=== PATIENT | male | born 1965 | race Caucasian/White ===

== ENCOUNTER 2016-12-25 12:17 | Inpatient (IN) ==
[2016-12-25] MEDS ORDERED: NALOXONE 0.4 MG/ML VIAL IV PRN (13:49)
[2016-12-25] MEDS ORDERED: CYANOCOBALAMIN 1000 MCG/1 ML VIAL IM ONE (13:57)
[2016-12-25] MEDS: DEXT 5% NACL 0.45% KCL 20 MEQ 20 MEQ/1,000 ML BAG IV SCH (14:26)
[2016-12-25] MEDS: HYDROmorphone PCA 30 MG/30 ML SYRINGE IV PRN ×3 (14:26→23:15)
[2016-12-25] MEDS: FOLIC ACID 1 MG TABLET PO SCH (14:40)
[2016-12-25] MEDS ORDERED: oxyCODONE IR 5 MG TABLET PO PRN (16:47)
--- NOTE | 2016-12-25 16:54 | Oncology History&Physical ---
History of Present Illness Chief complaint: Severe intractable pain due to metastatic lung cancer History of present illness: Mr. 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 He has multiple areas of tumor involving his bones including the manubrium, the left supraclavicular area and the lower left posterior back of the thorax. In addition, I found new areas of tumor involving the periphery of the right lung and I did a chest x-ray today. He has previously been treated with 5 courses of Taxol and carboplatin and radiation therapy but he progressed. I treated him with Xgeva. I started him on Opdivo and he received 2 courses with the second course being given 1 week ago. He is clearly worsening now. He is on fentanyl 150 mcg by patch daily and he is on 30 mg of oxycodone about every 2 hours without pain relief. My primary goal at this time is to relieve his pain and I may consider a third line of chemotherapy using Keytruda 200 mg IV, Alimta 750 mg IV and carboplatin 120 mg IV on to be given on day 1 and repeated every 3 weeks. Lab work done today in my office included a white cell count of 24,860 with a hemoglobin of 9.9 and a platelet count of 193,000. His comprehensive metabolic profile today was normal except for an alkaline phosphatase of 238 with a low serum calcium of 7.8 and a low serum albumin of 2.3. His serum creatinine today was 0.6. Past medical history he is allergic to penicillin. Past medical history is positive for COPD, depression, anxiety, anemia and B12 deficiency. Family history: Positive for lung cancer in 2 brothers. Positive for diabetes mellitus in her brother, melanoma in his father, lung cancer in his mother and one sister. Social history: He is single. He smokes cigarettes heavily. He does not use alcohol. Review of systems: Constitutional: Positive for decreased activity, fatigue, lethargy, malaise and weight loss. ENT: Negative for cold sores, dysphagia, ear drainage, ear infections, epistaxis , excessive cerumen, nasal obstruction, lump in throat, mouth sores, otalgia, pharyngitis, rhinitis, rhinorrhea, snoring, sore tongue, tinnitus, tooth pain and vertigo. Eyes: Positive for decreased vision. Negative for burning eyes, diplopia, eye discharge, eye pain, eye redness, floaters, nystagmus, photophobia, scotomata and excessive tearing. Respiratory: Positive for accelerated respiration, cough, painful respiration and wheezing. Negative for cyanosis, dyspnea, hemoptysis, TB exposure, orthopnea, pleuritic pain, sputum production. GI: Positive for change in appetite, change in bowel habits, decreased appetite , diarrhea, heartburn, odynophagia and vomiting. Negative for abdominal mass, abdominal pain, bloating, blood in stool, hematemesis, melena or hematochezia, jaundice or constipation. : Positive for decreased stream and poor urgency. Negative for icteric urine , kidney stones, chronic or recurrent kidney infections or incontinence. Neuro: Positive for dizziness, headaches, lightheadedness and tremors. Negative for a aphasia, dysarthria, focal weakness, gait disturbance, incontinence, incoordination, loss of consciousness, seizures, convulsions or paralysis. Psychiatric: Positive for insomnia. Negative for difficulty concentrating, and appropriate interaction, or psychiatric illness. Skin: Negative for skin rash or skin ulcers. Musculoskeletal: Positive for back pain, bone and joint aches and pains, muscle weakness and neck stiffness. Negative for rheumatologic manifestations. Hematologic: Positive for cytopenias, at times severe. Negative for bleeding diathesis, easy bleeding, easy bruising, hypercoagulability, lymphadenopathy, petechiae or thromboembolic events. Physical examination: General: The patient is emaciated and cachectic and chronically ill-appearing. He appears to be in pain as well. Eyes: Normal lids and conjunctivae and normal pupils. ENT: Normal tongue and oral mucosa. Teeth are not in good repair. His hearing is normal. His pharynx is normal. Neck: There are no neck masses. The thyroid is normal. His trachea is midline. Nodes: I cannot palpate any definite submandibular adenopathy and no right cervical or supraclavicular adenopathy. The patient has a huge mass that extends throughout most of the supraclavicular fossa on the left and extends up into the cervical chain. Respiratory: The patient's chest wall demonstrates multiple masses including an ulcerated 1 over the manubrium as well as one in the supraclavicular fossa on the left and he also has a painful tender enlarging mass over the posterior thorax in the left lower part of his chest that is stony hard. Breath sounds are coarse throughout without rubs, rales or rhonchi. Cardiovascular: His heart rhythm is regular without murmur, gallop or rub. There is no jugular venous distention, clubbing, cyanosis or edema. Abdomen: I palpate no abdominal masses or organomegaly and no ascites or tenderness. Musculoskeletal: Gait and station are normal. He has generalized muscle wasting. There is no focal muscle atrophy or bone or joint deformity except for deformity of the left clavicle that is involved apparently with the large left supraclavicular mass. Neurologic: Cranial nerves II through XII are intact. There are no focal neurologic deficits. Skin: See chest examination. There is a large ulcerated mass in the manubrium as well as other masses involving the chest as described above. Blood work on the patient on the day of this admission included an elevated alkaline phosphatase of 238. The patient also had a hemoglobin of 9.9 with a normal platelet count of 193,000. In addition, his chest x-ray demonstrated significant increase in size of masses within the right peripheral lung field. These are not painful but there is substantial increase in the overall mass- effect as well as some increased the patient's right hilum where a mass-effect was suggested on a previous x-ray but is now significantly enlarged. Impression: Severe intractable pain secondary to metastatic lung cancer Stage IV widely metastatic squamous cell carcinoma of the lung with rapid progression of disease Emaciation and cachexia secondary to lung cancer COPD Anemia, multifactorial due to chronic disease primarily. Her diagnostic studies and treatment plan see my orders. Home Medications Medication Instructions Recorded Confirmed Type Oxycodone HCl 30 mg PO QID PRN 10/29/16 12/25/16 History fentaNYL 25 MCG/HR PATCH 50 patch TRANSDERM Q3DAY 10/29/16 12/25/16 History [Duragesic 25 Patch] Amitriptyline [Elavil] 25 mg PO BEDTIME 12/04/16 12/25/16 History Folic Acid Tab 1 mg PO DAILY 12/04/16 12/25/16 History Ondansetron Tab [Zofran Tab] 4 mg PO Q6H PRN 12/04/16 12/25/16 History fentaNYL [Fentanyl 50 mcg/hr Patch] 100 mcg TRANSDERM Q3DAY 12/04/16 12/25/16 History Furosemide Tab [Lasix Tab] 20 mg PO DAILY 12/25/16 12/25/16 History Indomethacin Cap [Indocin Cap] 25 mg PO TID 12/25/16 12/25/16 History tiZANidine [Zanaflex] 4 mg PO TID 12/25/16 12/25/16 History Allergies Allergy/AdvReac Type Severity Reaction Status Date / Time Penicillins Allergy Verified 12/04/16 09:25 Medical,Surgical,& Family Hx - Medical History Psychological: History of: Anxiety Disorders, Depression Respiratory: History of: COPD, Respiratory Problems (emphysema) Hematology: History of: Anemia Other: History of: Miscellaneous Medical Problems (b12 deficiency) - Family History Family History: Reports;: Family Cancer (father,mother,sister), Family Diabetes (brother, mother) - Social History Smoking Status: Smoker, status unknown Exam - Constitutional Vitals: Period Temp Pulse Resp BP Sys/Kwok Pulse Ox Last 24 Hr 97.9 F 81 18 80/48 98 Results - Labs CBC & BMP: 12/26/16 05:30 12/26/16 05:30
[2016-12-25] MEDS ORDERED: traMADol 50 MG TABLET PO PRN (17:09)
[2016-12-25] MEDS ORDERED: chlorproMAZINE 25 MG TABLET PO PRN (17:09)
[2016-12-25] MEDS ORDERED: PROMETHAZINE INJ 25 MG in SODIUM CHLORIDE 0.9% 50 ML IV PRN (17:09)
[2016-12-25] MEDS ORDERED: MYLANTA/LIDO VISC 2:1 300 ML BOTTLE SWISH/SWAL PRN (17:09)
[2016-12-25] MEDS ORDERED: chlorproMAZINE INJ 50 MG in SODIUM CHLORIDE 0.9% 100 ML IV PRN (17:09)
[2016-12-25] MEDS ORDERED: LOPERAMIDE 2 MG CAPSULE PO PRN ×2 (17:09)
[2016-12-25] MEDS ORDERED: chlorproMAZINE INJ 25 MG in SODIUM CHLORIDE 0.9% 100 ML IV PRN (17:09)
[2016-12-25] MEDS ORDERED: ALUMINUM/MAGNES/SIMETH MAX STR 30 ML UDCUP PO PRN (17:09)
[2016-12-25] MEDS ORDERED: guaiFENesin 200 MG/10 ML UDCUP PO PRN (17:09)
[2016-12-25] MEDS ORDERED: ACETAMINOPHEN 325 MG TABLET PO PRN (17:09)
[2016-12-25] MEDS ORDERED: diphenhydrAMINE CAP 25 MG CAPSULE PO PRN (17:09)
[2016-12-25] MEDS ORDERED: BENZTROPINE 2 MG/2 ML AMP IV PRN (17:09)
[2016-12-25] MEDS ORDERED: ALPRAZolam 0.25 MG TABLET PO PRN (17:09)
[2016-12-25] MEDS ORDERED: MYLANTA/LIDO VISC 2:1 300 ML BOTTLE SWISH/SPIT PRN (17:09)
[2016-12-25] MEDS ORDERED: TEMAZEPAM 7.5 MG CAPSULE PO PRN (17:09)
[2016-12-25] MEDS: INDOMETHACIN 25 MG CAPSULE PO SCH (21:33)
[2016-12-25] MEDS: tiZANidine 4 MG TABLET PO SCH (21:33)
[2016-12-25] MEDS: AMITRIPTYLINE 25 MG TABLET PO SCH (21:33)
[2016-12-26] MEDS: DEXT 5% NACL 0.45% KCL 20 MEQ 20 MEQ/1,000 ML BAG IV SCH ×4 (03:00→20:52)
[2016-12-26] MEDS: HYDROmorphone PCA 30 MG/30 ML SYRINGE IV PRN ×4 (05:43→21:41)
[2016-12-26 06:07] LABS: Basophils # 0.1 10*3/uL (0.0-0.2); Basophils % 0.3 % (0.0-0.8); Eosinophils # 1.2 10*3/uL (0.0-0.87); Hematocrit 27.6 VOL% (42.0-52.0); Hemoglobin 9.2 GM/DL (14.0-18.0); Immature Granulocytes % 1.1 %; Immature Granulocytes Absolute 0.21 #; Lymphocytes # 0.8 10*3/uL (1.4-4.0); Lymphocytes % 4.1 % (21.2-54.2); Mean Corpuscular HGB Conc 33.3 GM/DL (32-36); Mean Corpuscular Hemoglobin 31 PG (27-34); Mean Corpuscular Volume 91.4 FL (87-102); Mean Platelet Volume 11.2 FL (9.6-12.0); Monocytes # 1.8 10*3/uL (0.11-0.8); Monocytes % 9.4 % (1.7-12.7); Neutrophils # 15.3 10*3/uL (1.4-7.4); Neutrophils % 79.1 % (38.7-73.9); Platelet Count 137 T/CUMM (130-400); Red Blood Count 3.02 MC/CUMM (3.8-5.5); Red Cell Distribution Width 16.1 % (9.3-17.3); White Blood Count 19.4 T/CUMM (4-12)
[2016-12-26 06:29] LABS: Band Neutrophils 1 % (0-10); Eosinophils 5 % (0-10); Hypochromasia 1+; Lymphocytes 3 % (20-55); Microcytosis 1+; Ovalocytes Few; Segmented Neutrophils 88 % (50-85); Tear Drop Cells Slight; Total Cells Counted 100
[2016-12-26 06:30] LABS: Platelet Estimate Adequate
[2016-12-26 06:42] LABS: Albumin 1.5 G/DL (3.4-5.0); Bilirubin,Total 1.1 MG/DL (0.2-1.0); Calcium 7.1 MG/DL (8.5-10.1); Magnesium 2.2 MG/DL (1.8-2.4); Osmolality,Calculated 265.2 MOS/KG (273-304); Total Protein 5.1 G/DL (6.4-8.3); Uric Acid 1.8 MG/DL (3.5-7.2)
[2016-12-26 06:43] LABS: Apearance,Urine CLEAR (Clear); Bilirubin,Urine Negative (Negative); Blood, Urine Negative (Negative); Glucose,Urine (UA) Negative (Negative); Ketones,Urine Negative (Negative); Mucus,Urine Occasional /LPF (Occasional); Nitrite,Urine Negative (Negative); Protein,Urine Negative; RBC,Urine <1 /HPF (0-4); Squamous Epithelial Cell,Urine Occasional /HPF (0-10); Urine Color Yellow (Yellow); Urine Specific Gravity 1.011 (1.001-1.035); WBC,Urine 1 /HPF (0-6)
--- NOTE | 2016-12-26 08:15 | Oncology Progress Note ---
Oncology Subjective PN Interval history: Mr. Angulo was admitted with severe intractable pain and is now only downloaded FINISHER DENTURE with demand and continuous rates. He has stage IV disseminated squamous cell carcinoma of the lung. He has progressed on Taxol and carboplatin with radiation. He is also now progressed on Opdivo. I have given him B12 and folic acid in anticipation of considering Alimta, carboplatin and Keytruda. He is emaciated and cachectic and critically ill but his pain appears to be better controlled today on the Dilaudid FINISHER DENTURE. I am in the process of getting his pain stabilized and will be discussing chemotherapy with him. I discussed CODE STATUS with the patient today. He does not want to be intubated or placed on a ventilator. Exam - Constitutional Vitals: Period Temp Pulse Resp BP Sys/Kwok Pulse Ox Last 24 Hr 97.0 F-99.1 F 81-116 16-20 80-116/48-61 89-98 Results - Labs CBC & BMP: 12/26/16 05:30 12/26/16 05:30
[2016-12-26] MEDS ORDERED: FOLIC ACID 1 MG TABLET PO SCH (09:00)
[2016-12-26] MEDS ORDERED: fentaNYL 50 MCG/HR PATCH TRANSDERM SCH (09:00)
--- NOTE | 2016-12-26 09:27 | XRay Report ---
Chest, 2 views History is metastatic squamous cell of the long The heart is normal in size. The there is a mild superior mediastinal widening and peritracheal soft tissue fullness. There is a 5 cm fullness in the right hilum There are numerous right lung nodules measuring up to 6 cm. Several up to 1.5 cm nodules in left lung base present. Small right pleural effusion present. Underlying infiltrates could easily be present as well in the right lung base. Relative lucency overlying the nodule in the right upper chest most likely overlying shadows however a small cavity cannot be excluded. Likely chronic right rib fracture noted. L1 the sclerosis versus uteroplasty present Impression: Multiple right greater than left lung nodules likely neoplastic with right hilar mass or adenopathy and suspected mediastinal adenopathy. PROCEDURE INTERPRETED AT [facility] DEPARTMENT OF RADIOLOGY Final Report Signed by: Dr. Ericka Santana
[2016-12-26] MEDS: INDOMETHACIN 25 MG CAPSULE PO SCH ×3 (09:47→20:51)
[2016-12-26] MEDS: FUROSEMIDE 20 MG TABLET PO SCH (09:47)
[2016-12-26] MEDS: tiZANidine 4 MG TABLET PO SCH ×3 (09:47→20:51)
[2016-12-26] MEDS: FOLIC ACID 1 MG TABLET PO SCH (09:47)
[2016-12-26] MEDS: AMITRIPTYLINE 25 MG TABLET PO SCH (20:51)
[2016-12-27] MEDS: HYDROmorphone PCA 30 MG/30 ML SYRINGE IV PRN ×5 (02:37→22:07)
[2016-12-27] MEDS: DEXT 5% NACL 0.45% KCL 20 MEQ 20 MEQ/1,000 ML BAG IV SCH ×2 (06:54→17:02)
[2016-12-27] MEDS: INDOMETHACIN 25 MG CAPSULE PO SCH ×3 (08:39→20:24)
[2016-12-27] MEDS: tiZANidine 4 MG TABLET PO SCH ×3 (08:39→20:24)
[2016-12-27] MEDS: FOLIC ACID 1 MG TABLET PO SCH (08:39)
[2016-12-27] MEDS: FUROSEMIDE 20 MG TABLET PO SCH (08:39)
--- NOTE | 2016-12-27 08:56 | Oncology Progress Note ---
Oncology Subjective PN Interval history: was admitted with severe intractable pain due to advanced, progressive squamous cell carcinoma of the lung that has now progressed on Taxol , carboplatin and radiation and also has progressed on Opdivo. He is having terrible pain presently. He has a large mass in the left supraclavicular area as well as a large ulcerating mass over the manubrium and another painful mass in the left lower posterior thoracic subcutaneous tissue. In addition, he has rapidly progressing cancer in his right lung that was not clearly visible just a couple of months ago and is now easily visible on chest x -ray. 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 I have started him on B12 and folic acid in anticipation of attempting to treat him with Alimta, carboplatin and Keytruda but that would be third line treatment and I am not optimistic of it being very effective. He had been on fentanyl 150 mg patches every 72 hours along with oxycodone 30 mg every 2 hours as needed for pain. I am discontinuing the oxycodone. We are going to discontinue his demand dose of Dilaudid on his PRINCIPAL NETWORK ENGINEER. We will continue the Dilaudid PRINCIPAL NETWORK ENGINEER with continuous right infusion of Dilaudid. I am switching him to Dilaudid by mouth initially at a dose of 4 mg every 2 hours with orders to increase the demand dose, which is to be given by mouth, 8 mg p.o. every 2 hours if necessary. I anticipate discharge next week, hopefully on Friday we can get his pain under control. Exam - Constitutional Vitals: Period Temp Pulse Resp BP Sys/Kwok Pulse Ox Last 24 Hr 97.1 F-99.1 F 81-106 16-20 73-96/43-56 20-95 Results - Labs CBC & BMP: 12/26/16 05:30 12/26/16 05:30
[2016-12-27] MEDS: HYDROmorphone 2 MG TABLET PO PRN ×4 (11:44→22:03)
[2016-12-27] MEDS: AMITRIPTYLINE 25 MG TABLET PO SCH (20:25)
[2016-12-28] MEDS: HYDROmorphone 2 MG TABLET PO PRN ×6 (00:03→20:31)
[2016-12-28] MEDS: DEXT 5% NACL 0.45% KCL 20 MEQ 20 MEQ/1,000 ML BAG IV SCH ×3 (02:57→22:50)
[2016-12-28] MEDS: HYDROmorphone PCA 30 MG/30 ML SYRINGE IV PRN ×3 (05:56→16:35)
[2016-12-28] MEDS ORDERED: fentaNYL 25 MCG/HR PATCH TRANSDERM SCH (09:00)
[2016-12-28] MEDS ORDERED: fentaNYL 50 MCG/HR PATCH TRANSDERM SCH (09:00)
[2016-12-28] MEDS ORDERED: LACTULOSE 20 GM/30 ML UDCUP PO SCH (09:30)
--- NOTE | 2016-12-28 09:30 | Oncology Progress Note ---
Assessment and Plan (1) Lung cancer Status: Acute Current Visit: Yes (2) Intractable pain Status: Acute Current Visit: Yes (3) Constipation Status: Acute Current Visit: Yes (4) Constipation due to opioid therapy Status: Acute Current Visit: Yes Oncology Subjective PN Interval history: Mr. Angulo seems to be doing well today. We will increase his fentanyl dosing to 200 mcg daily and decrease his continuous Dilaudid to 2 mg/h down from 4 mg/ h. He complains of constipation so we will place him on daily MiraLAX. I will give him 2 doses of lactulose today. I encouraged him to sit on the edge of the bed or sit in a chair for the majority of the day. 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 Exam - Constitutional Vitals: Period Temp Pulse Resp BP Sys/Kwok Pulse Ox Last 24 Hr 97.6 F-99.3 F 95-126 16-20 85-97/52-54 89-95 General appearance: normal weight, no acute distress - Head Head Exam: Present: normocephalic, atraumatic - Eye Eye Exam: Present: EOMI Pupils: Present: PERRL - ENT ENT exam: Present: normal exam, normal oropharynx - Neck Neck exam: Absent: normal inspection, lymphadenopathy - Respiratory Respiratory exam: Present: CTAB. Absent: wheezes - Cardiovascular Cardiovascular exam: Present: RRR. Absent: JVD - GI/Abdominal GI/Abdominal exam: Present: soft. Absent: ascites, distended, mass - Neurological Exam Neurological exam: Present: alert, oriented X3 - Psychiatric Psychiatric exam: Present: normal affect, normal mood - Skin Skin exam: Present: warm, dry Results - Labs CBC & BMP: 12/26/16 05:30 12/26/16 05:30 Lab Results: I have reviewed the past 24 hour labs
[2016-12-28] MEDS: FUROSEMIDE 20 MG TABLET PO SCH (09:40)
[2016-12-28] MEDS: FOLIC ACID 1 MG TABLET PO SCH (09:40)
[2016-12-28] MEDS: tiZANidine 4 MG TABLET PO SCH ×3 (09:40→20:31)
[2016-12-28] MEDS: fentaNYL 100 MCG/HR PATCH TRANSDERM SCH ×2 (09:41)
[2016-12-28] MEDS: INDOMETHACIN 25 MG CAPSULE PO SCH ×3 (09:41→20:31)
[2016-12-28] MEDS: POLYETHYLENE GLYCOL POWDER 17 GM PACK PO SCH (09:46)
[2016-12-28] MEDS: ONDANSETRON 4 MG/2 ML VIAL IV PRN (12:36)
[2016-12-28] MEDS: ALBUTEROL/IPRATROPIUM 3 ML NEB RESP TX SCH ×2 (13:40→19:51)
[2016-12-28] MEDS: AMITRIPTYLINE 25 MG TABLET PO SCH (20:31)
[2016-12-29] MEDS: ALBUTEROL/IPRATROPIUM 3 ML NEB RESP TX SCH ×4 (01:06→19:48)
[2016-12-29] MEDS: HYDROmorphone 2 MG TABLET PO PRN ×4 (02:31→20:56)
[2016-12-29] MEDS: HYDROmorphone PCA 30 MG/30 ML SYRINGE IV PRN (07:30)
--- NOTE | 2016-12-29 09:33 | Oncology Progress Note ---
Assessment and Plan (1) Lung cancer Status: Acute Current Visit: Yes (2) Intractable pain Status: Acute Current Visit: Yes (3) Constipation Status: Acute Current Visit: Yes (4) Constipation due to opioid therapy Status: Acute Current Visit: Yes Oncology Subjective PN Interval history: Mr. Angulo is requiring more oxygen today. We again had a lengthy discussion about end-of-life care and he still is adamant that he does not want be placed on the mechanical ventilator if it comes to that. His chart was already labeled DNR. We will be certain to keep him comfortable if he declines further. He seems to be doing well with increased dose of fentanyl. His overall prognosis is very poor and he seems to be at a place where we could start considering hospice level care. Exam - Constitutional Vitals: Period Temp Pulse Resp BP Sys/Kwok Pulse Ox Last 24 Hr 96.9 F-98.1 F 91-118 16-21 89-132/46-59 82-98 General appearance: normal weight, no acute distress - Head Head Exam: Present: normocephalic, atraumatic - Eye Eye Exam: Present: EOMI Pupils: Present: PERRL - ENT ENT exam: Present: normal exam, normal oropharynx - Neck Neck exam: Absent: lymphadenopathy, thyromegaly - Respiratory Respiratory exam: Absent: CTAB - Cardiovascular Cardiovascular exam: Present: RRR. Absent: JVD - GI/Abdominal GI/Abdominal exam: Present: soft. Absent: ascites, distended, mass - Neurological Exam Neurological exam: Present: alert, oriented X3 - Skin Skin exam: Present: warm, dry Results - Labs CBC & BMP: 12/26/16 05:30 12/26/16 05:30
[2016-12-29] MEDS: FUROSEMIDE 20 MG TABLET PO SCH (10:14)
[2016-12-29] MEDS: tiZANidine 4 MG TABLET PO SCH ×3 (10:15→20:55)
[2016-12-29] MEDS: INDOMETHACIN 25 MG CAPSULE PO SCH ×3 (10:15→20:56)
[2016-12-29] MEDS: FOLIC ACID 1 MG TABLET PO SCH (10:15)
[2016-12-29] MEDS: LACTULOSE 20 GM/30 ML UDCUP PO PRN (10:16)
[2016-12-29] MEDS: POLYETHYLENE GLYCOL POWDER 17 GM PACK PO SCH (10:19)
[2016-12-29] MEDS: DEXT 5% NACL 0.45% KCL 20 MEQ 20 MEQ/1,000 ML BAG IV SCH ×2 (13:49→20:54)
[2016-12-29] MEDS: AMITRIPTYLINE 25 MG TABLET PO SCH (20:56)
[2016-12-30] MEDS: ALBUTEROL/IPRATROPIUM 3 ML NEB RESP TX SCH ×4 (01:00→18:59)
[2016-12-30] MEDS: DEXT 5% NACL 0.45% KCL 20 MEQ 20 MEQ/1,000 ML BAG IV SCH ×4 (05:30→20:32)
--- NOTE | 2016-12-30 07:41 | Oncology Progress Note ---
Oncology Subjective PN Interval history: Severe intractable pain secondary to metastatic stage IV squamous cell lung carcinoma He is still on parenteral narcotics for pain and I do not think I will ever get off them. 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 Angulo now has significant edema of the left arm, probably from the large amount of tumor located overlying the left clavicle. I am proceeding with chemotherapy today but the hospital will not supply Keytruda inpatient because of the expense. Will use Alimta and carboplatin. This is third line chemotherapy and I am not optimistic about the effectiveness of it but am hoping that it will improve enough that I can send him home and return him for Keytruda a few days. Emaciation and cachexia COPD In addition, he is becoming hypoxic and he is on a 100% oxygen rebreather. Anemia, multifactorial including chronic disease mainly and partly due to chemotherapy and radiation We will recheck lab work today. Exam - Constitutional Vitals: Period Temp Pulse Resp BP Sys/Kwok Pulse Ox Last 24 Hr 97.0 F-98.9 F 86-135 16-32 90-121/47-64 73-88 Results - Labs CBC & BMP: 12/26/16 05:30 12/26/16 05:30
[2016-12-30] MEDS ORDERED: PEMETREXED IV ONE (08:30)
[2016-12-30] MEDS ORDERED: CARBOPLATIN IV ONE (08:30)
[2016-12-30] MEDS ORDERED: SODIUM CHLORIDE 0.9% IV ONE ×2 (08:30)
[2016-12-30] MEDS ORDERED: CYANOCOBALAMIN 1000 MCG/1 ML VIAL IM ONE (08:30)
[2016-12-30 08:32] LABS: Basophils # 0.1 10*3/uL (0.0-0.2); Basophils % 0.4 % (0.0-0.8); Eosinophils # 1.5 10*3/uL (0.0-0.87); Eosinophils % 8.2 % (0.00-10.9); Hemoglobin 8.9 GM/DL (14.0-18.0); Immature Granulocytes % 1.1 %; Lymphocytes # 0.8 10*3/uL (1.4-4.0); Lymphocytes % 4.6 % (21.2-54.2); Mean Corpuscular Hemoglobin 31 PG (27-34); Mean Corpuscular Volume 92.5 FL (87-102); Mean Platelet Volume 11.6 FL (9.6-12.0); Monocytes % 5.7 % (1.7-12.7); Neutrophils # 14.5 10*3/uL (1.4-7.4); Red Blood Count 2.92 MC/CUMM (3.8-5.5); Red Cell Distribution Width 16.3 % (9.3-17.3); White Blood Count 18.1 T/CUMM (4-12)
[2016-12-30 08:36] LABS: Platelet Count 78 T/CUMM (130-400)
[2016-12-30] MEDS: INDOMETHACIN 25 MG CAPSULE PO SCH ×3 (08:47→21:13)
[2016-12-30] MEDS: FOLIC ACID 1 MG TABLET PO SCH (08:47)
[2016-12-30] MEDS: FUROSEMIDE 20 MG TABLET PO SCH (08:47)
[2016-12-30] MEDS: tiZANidine 4 MG TABLET PO SCH ×3 (08:47→21:13)
[2016-12-30] MEDS: POLYETHYLENE GLYCOL POWDER 17 GM PACK PO SCH (08:48)
[2016-12-30 08:59] LABS: Band Neutrophils 1 % (0-10); Eosinophils 6 % (0-10); Hypochromasia 1+; Lymphocytes 5 % (20-55); Segmented Neutrophils 83 % (50-85); Total Cells Counted 100
[2016-12-30 09:00] LABS: Elliptocytes Few; Microcytosis 1+; Tear Drop Cells Slight
[2016-12-30 09:01] LABS: Platelet Estimate Decreased
[2016-12-30 09:12] LABS: Albumin 1.5 G/DL (3.4-5.0); Bilirubin,Total 1.6 MG/DL (0.2-1.0); Calcium 7.6 MG/DL (8.5-10.1); Osmolality,Calculated 274.8 MOS/KG (273-304); Potassium 4.4 MMOL/L (3.5-5.1); Total Protein 5.1 G/DL (6.4-8.3)
[2016-12-30] MEDS: DEXAMETHASONE 4 MG/1 ML VIAL IV SCH (10:13)
[2016-12-30] MEDS: GRANISETRON 1 MG/1 ML VIAL IV SCH (10:14)
[2016-12-30] MEDS: HYDROmorphone PCA 30 MG/30 ML SYRINGE IV PRN (10:18)
[2016-12-30] MEDS: AMITRIPTYLINE 25 MG TABLET PO SCH (21:13)
[2016-12-31] MEDS: ALBUTEROL/IPRATROPIUM 3 ML NEB RESP TX SCH ×4 (01:00→19:10)
[2016-12-31] MEDS: DEXT 5% NACL 0.45% KCL 20 MEQ 20 MEQ/1,000 ML BAG IV SCH ×3 (06:19→16:35)
--- NOTE | 2016-12-31 08:14 | Oncology Progress Note ---
Oncology Subjective PN Interval history: Mr. Angluo received Alimta and carboplatin yesterday. This was the third line chemotherapy. He has disseminated squamous cell carcinoma of the lung and he has developed hypoxia requiring 100% oxygen by rebreather. He is tachypnea. He has swelling of his left arm. However, it has gone down slightly since yesterday. I am hoping this is a response to chemotherapy. He is emaciated and cachectic. He is also having a lot of pain and he is on parenteral narcotics for pain relief. We will continue to monitor him for side effects from the chemotherapy. I am consulting pulmonary to evaluate patient with me. His oxygen line is too short. He cannot reach his bathroom without taking his 100% oxygen often this is exceedingly dangerous. I have requested that it be replaced. This is third line chemotherapy and I had planned to use Keytruda outpatient but the patient cannot be discharged yet. He cannot receive contrary to inpatient. The pharmacy cannot absorb the cost inpatient. Exam - Constitutional Vitals: Period Temp Pulse Resp BP Sys/Kwok Pulse Ox Last 24 Hr 96.4 F-97.4 F 66-116 16- 78-111/46-63 72-97 Results - Labs CBC & BMP: 12/30/16 08:24 12/30/16 08:24
[2016-12-31] MEDS: GRANISETRON 1 MG/1 ML VIAL IV SCH (08:42)
[2016-12-31] MEDS: DEXAMETHASONE 4 MG/1 ML VIAL IV SCH (08:42)
[2016-12-31] MEDS: FOLIC ACID 1 MG TABLET PO SCH (08:43)
[2016-12-31] MEDS: fentaNYL 100 MCG/HR PATCH TRANSDERM SCH ×2 (08:43→08:44)
[2016-12-31] MEDS: INDOMETHACIN 25 MG CAPSULE PO SCH (08:43)
[2016-12-31] MEDS: FUROSEMIDE 20 MG TABLET PO SCH (08:43)
[2016-12-31] MEDS: tiZANidine 4 MG TABLET PO SCH ×3 (08:43→20:12)
[2016-12-31] MEDS: POLYETHYLENE GLYCOL POWDER 17 GM PACK PO SCH (08:44)
--- NOTE | 2016-12-31 09:35 | XRay Report ---
XR chest 2V Indication: Follow-up lung cancer, chest mass Comparison: Chest x-ray dated December 26, 2016 Technique: Frontal and lateral views of the chest. Findings: Borderline heart size. Interval development of bilateral interstitial prominence suspicious for interstitial pulmonary edema, pneumonitis, or interstitial pneumonia. Previously described predominantly right-sided lung masses appear mildly decreased in size from prior examination. The largest is located within the lateral mid right lung and measures up to 4.6 cm compared to 5.1 cm on prior examination. Atelectasis of the right middle lobe noted. Visualized osseous and surrounding soft tissue structures appear grossly unchanged. L1 sclerosis versus vertebroplasty change. IMPRESSION: As above. PROCEDURE INTERPRETED AT [facility] DEPARTMENT OF RADIOLOGY Final Report Signed by: Dr Amandeep Anglin
[2016-12-31] MEDS ORDERED: FUROSEMIDE 40 MG/4 ML VIAL IV ONE (10:15)
--- NOTE | 2016-12-31 11:18 | Pulmonology Consult Note ---
Assessment and Plan (1) Pulmonary edema Status: Acute Assessment and plan: May be ahead on fluids. He has been getting hydration and his renal function is normal. Will check BNP and get echocardiogram. Diuresed vigorously. Serum proteins are low which may aggravate this. Other less likely cause may be related to chemotherapy. This does not look like pneumonia. Current Visit: Yes (2) Debility Status: Acute Assessment and plan: Due to widespread metastatic disease and inactivity Current Visit: Yes (3) Severe protein-calorie malnutrition Status: Acute Assessment and plan: Low serum albumin. This aggravates pulmonary edema. Current Visit: Yes (4) Intractable pain Status: Acute Assessment and plan: Managed by Dr. Silva. Due to multiple bony metastasis Current Visit: Yes (5) Lung cancer Status: Acute Assessment and plan: Stage IV squamous cell lung cancer. I do note the patient is a DO NOT RESUSCITATE. Current Visit: Yes History of Present Illness Chief complaint: Shortness of breath History of present illness: Mr. Angulo is a 51 year old male who has stage IV squamous cell lung cancer with metastasis to multiple bony sites and severe pain. He came in and was given Alimta and carboplatin. He has had radiation therapy Taxol and carboplatin as an outpatient. He has been short of breath since June but basically more short of breath the last 2 or 3 days. He is a continuous smoker. He has a history of incarceration. He was treated initially at [facility] in [place] but is transferred treatment over here. His renal function has been normal. He had a low serum albumin. He has been on IV fluids since admission. There have not been any whites none but he has developed edema. His chest x-ray today shows pulmonary edema. He has not had any fever or purulent sputum. Home Medications Medication Instructions Recorded Confirmed Type Oxycodone HCl 30 mg PO QID PRN 10/29/16 12/25/16 History fentaNYL 25 MCG/HR PATCH 50 patch TRANSDERM Q3DAY 10/29/16 12/25/16 History [Duragesic 25 Patch] Amitriptyline [Elavil] 25 mg PO BEDTIME 12/04/16 12/25/16 History Folic Acid Tab 1 mg PO DAILY 12/04/16 12/25/16 History Ondansetron Tab [Zofran Tab] 4 mg PO Q6H PRN 12/04/16 12/25/16 History fentaNYL [Fentanyl 50 mcg/hr Patch] 100 mcg TRANSDERM Q3DAY 12/04/16 12/25/16 History Furosemide Tab [Lasix Tab] 20 mg PO DAILY 12/25/16 12/25/16 History Indomethacin Cap [Indocin Cap] 25 mg PO TID 12/25/16 12/25/16 History tiZANidine [Zanaflex] 4 mg PO TID 12/25/16 12/25/16 History Allergies Allergy/AdvReac Type Severity Reaction Status Date / Time Penicillins Allergy Verified 12/04/16 09:25 12 point system: reviewed and no additional remarkable complaints except as stated - Constitutional Constitutional: Present: fatigue, malaise, weight loss - Cardiovascular Cardiovascular: Present: dyspnea, dyspnea on exertion, edema, orthopnea - Respiratory Respiratory: Present: cough, dyspnea, dyspnea on exertion - Gastrointestinal Gastrointestinal: Present: change in bowel habits, nausea, vomiting - Genitourinary Genitourinary: Present: difficulty urinating - Musculoskeletal Musculoskeletal: Present: arthralgias, back pain, joint swelling, myalgias - Neurological Neurological: Present: dizziness, headache(s) - Psychiatric Psychiatric: Present: other (Insomnia) - Hematologic/Lymphatic Hematologic/Lymphatic: Present: other (Low blood count) Exam (Pulmonay) H&P - Constitutional Vitals: Period Temp Pulse Resp BP Sys/Kwok Pulse Ox Last 24 Hr 96.4 F-97.3 F 66-103 16-26 78-111/46-63 72-96 Exam: Patient is alert. Vital signs normal except O2 sat 95% on nonrebreathing mask. Pupils react to light. Throat is clear. Neck supple no bruits. Chest reveals rales bilaterally. Heart normal rate and rhythm I do not hear any murmurs. Abdomen is soft liver edge is palpable. Should mention that he has a growth coming out of the right side of his chest which appears to be metastatic cancer. Extremities he has 2-3+ peripheral edema which is pitting. Medical,Surgical,& Family Hx - Medical History Psychological: History of: Anxiety Disorders, Depression Respiratory: History of: COPD, Respiratory Problems (emphysema) Hematology: History of: Anemia Other: History of: Miscellaneous Medical Problems (b12 deficiency) - Family History Family History: Reports;: Family Cancer (father,mother,sister), Family Diabetes (brother, mother) - Social History Smoking Status: Heavy tobacco smoker Results - Labs CBC & BMP: 12/30/16 08:24 12/30/16 08:24 Lab Results: I have reviewed the past 24 hour labs - Diagnostic Findings Procedure: Chest x-ray: image reviewed by me (Pulmonary nodules peripherally in the right lung. Interstitial edema bilaterally. No pleural effusions)
[2016-12-31] MEDS: FUROSEMIDE 40 MG/4 ML VIAL IV SCH (16:31)
--- NOTE | 2016-12-31 18:16 | ECHO Report ---
Jean Paul Angulo Exam Date: 12/31/2016 12:12 Referring Physician: Technologist: chastity Wick, RVT Age: 51 Ht (in): 65 Wt (lb): 112 Gender: M Exam Location: [facility] Echo Indications: Shortness of breath, Lung cancerW/ metastatic disease, Debility, Pulmonary edema, Severe protein and calorie malnutririon BP: 88 / 50 HR: 92 Rhythm: Sinus Technical Quality: Technically difficult study IMPRESSIONS Technically difficult study Left ventricular ejection fraction is estimated at 55-60%. Mild diastolic dysfunction. Trace mitral valve regurgitation. Mild tricuspid valve regurgitation. Trace pulmonary valve regurgitation. MEASUREMENTS (Male / Female) Normal Values 2D ECHO LV Diastolic Diameter PLAX 4.7 cm 4.2 - 5.9 / 3.9 - 5.3 cm LV Systolic Diameter PLAX 3.0 cm LV Fractional Shortening PLAX 36.4 % IVS Diastolic Thickness 0.6 cm 0.6 - 1.0 / 0.6 - 0.9 cm LVPW Diastolic Thickness 0.8 cm 0.6 - 1.0 / 0.6 - 0.9 cm RV Internal Dim ED PLAX 2.5 cm Aortic Root Diameter 3.0 cm LA Systolic Diameter LX 2.9 cm 3.0 - 4.0 / 2.7 - 3.8 cm DOPPLER TR Peak Velocity 274.0 cm/s TR Peak Gradient 30.0 mmHg FINDINGS Left Ventricle Normal left ventricular cavity size. Normal left ventricular wall thickness. Left ventricular ejection fraction is estimated at 55-60%. Mild diastolic dysfunction Right Ventricle The right ventricle is normal in size and function. Right Atrium The right atrium is normal in size. Left Atrium The left atrium is normal in size. Mitral Valve Mildly thickened mitral valve. Trace mitral valve regurgitation. Aortic Valve Morphologically normal aortic valve without significant sclerosis or stenosis. There is no aortic regurgitation. Tricuspid Valve Morphologically normal tricuspid valve. Mild tricuspid valve regurgitation. Tricuspid regurgitation velocities suggest a PAP of 40 mmHg. Pulmonic Valve Morphologically normal pulmonic valve. Trace pulmonary valve regurgitation. Pericardium Normal pericardium without effusion. Aorta Normal ascending aorta dimension. Edward Solis (Electronically Signed) Final Date: 31 December 2016 18:15
[2016-12-31] MEDS: AMITRIPTYLINE 25 MG TABLET PO SCH (20:12)
[2017-01-01] MEDS: ALBUTEROL/IPRATROPIUM 3 ML NEB RESP TX SCH ×4 (00:44→19:25)
[2017-01-01] MEDS: HYDROmorphone 2 MG TABLET PO PRN ×6 (05:03→19:33)
[2017-01-01 06:35] LABS: Basophils % 0.1 % (0.0-0.8); Eosinophils % 0.1 % (0.00-10.9); Hematocrit 28.9 VOL% (42.0-52.0); Hemoglobin 9.3 GM/DL (14.0-18.0); Immature Granulocytes % 0.9 %; Immature Granulocytes Absolute 0.21 #; Lymphocytes # 0.9 10*3/uL (1.4-4.0); Lymphocytes % 4.2 % (21.2-54.2); Mean Corpuscular HGB Conc 32.2 GM/DL (32-36); Mean Corpuscular Hemoglobin 29 PG (27-34); Mean Corpuscular Volume 91.5 FL (87-102); Monocytes # 0.1 10*3/uL (0.11-0.8); Monocytes % 0.5 % (1.7-12.7); Neutrophils # 20.9 10*3/uL (1.4-7.4); Neutrophils % 94.2 % (38.7-73.9); Platelet Count 104 T/CUMM (130-400); Red Blood Count 3.16 MC/CUMM (3.8-5.5); White Blood Count 22.2 T/CUMM (4-12)
[2017-01-01 07:02] LABS: Albumin 1.7 G/DL (3.4-5.0); Calcium 7.4 MG/DL (8.5-10.1); Potassium 4.7 MMOL/L (3.5-5.1); Total Protein 5.6 G/DL (6.4-8.3)
[2017-01-01 07:12] LABS: Band Neutrophils 2 % (0-10); Lymphocytes 3 % (20-55); Segmented Neutrophils 95 % (50-85); Total Cells Counted 100
[2017-01-01 07:13] LABS: Giant Platelets Few; Hypochromasia 1+; Microcytosis 1+; Ovalocytes Slight; Platelet Estimate Decreased
[2017-01-01] MEDS: FUROSEMIDE 20 MG TABLET PO SCH ×2 (07:52→13:34)
[2017-01-01] MEDS: tiZANidine 4 MG TABLET PO SCH ×4 (07:53→20:28)
[2017-01-01] MEDS: methylPREDNISolone SOD SUC 40 MG/1 ML VIAL IV SCH ×3 (07:53→23:13)
[2017-01-01] MEDS: FOLIC ACID 1 MG TABLET PO SCH ×2 (07:53→11:33)
[2017-01-01] MEDS: FUROSEMIDE 40 MG/4 ML VIAL IV SCH ×2 (07:54→13:33)
[2017-01-01] MEDS: LEVOFLOXACIN INJ 500 MG in PREMIX 1 EACH IV SCH (07:55)
--- NOTE | 2017-01-01 07:55 | Oncology Progress Note ---
Oncology Subjective PN Interval history: remains critically ill with severe COPD as well as stage IV squamous cell carcinoma lung. He has just received chemotherapy using Alimta and carboplatin. He has left arm edema. His chest x-ray suggests fluid overload or possibly lymphangitic spread of tumor. I have consulted Dr. John on his case and appreciate his assistance. Mr. tinoco has life-threatening lung cancer with emaciation, cachexia and severe COPD. We are going to keep him as comfortable as possible. He is on oral and parenteral narcotics for pain. On physical examination he is oriented 3 and alert. Cranial nerves II through XII are intact and he has no focal neurologic deficits. He has extensive tumor involvement of the left supraclavicular area, manubrium of the sternum and left lower posterior thorax. He is critically ill. Lab work today includes a white cell count of 22,200 with a hemoglobin of 9.3 and a platelet count of 104,000. I do not think is minor thrombocytopenia is of any significance. His serum creatinine is normal at 0.4 and his calcium is 7.4. He has a low albumin of 1.7 due to emaciation and cachexia and malnutrition. Exam - Constitutional Vitals: Period Temp Pulse Resp BP Sys/Kwok Pulse Ox Last 24 Hr 96.8 F-97.6 F 86-114 18-24 86-95/50-61 88-96 Results - Labs CBC & BMP: 01/01/17 05:48 01/01/17 05:48
--- NOTE | 2017-01-01 08:44 | Pulmonology Progress Note ---
Pulmonary - PN: Subj Interval history: This 51-year-old man has widespread metastatic squamous cell cancer including chest wall involvement left shoulder involvement rib cage involvement. He has had radiation to his chest and left shoulder which was completed about 2 months ago. He now has diffuse infiltrates which have come up rather quickly. I reviewed his medications and neither the Alimta nor the carboplatin have any significant pulmonary toxicity or cardiac toxicity. We may be seeing some radiation pneumonitis. Superimposed pneumonia is a possibility. Noncardiac pulmonary edema also a possibility. Will treat with steroids and empiric antibiotics. Try to reduce oxygen as high oxygen levels can make radiation pneumonitis worse Exam (Progress Note) - Constitutional Vitals: Period Temp Pulse Resp BP Sys/Kwok Pulse Ox Last 24 Hr 96.8 F-97.6 F 86-114 18-24 86-95/50-61 88-96 Exam: Patient's alert responsive sitting on the side of the bed wearing his nonrebreathing mask. Pupils are reactive. Neck is supple. Chest reveals some rales bilaterally. A few musical rhonchi. Heart normal rate and rhythm no murmurs. Bandage over his sternum. Abdomen soft nontender no masses. Extremities no clubbing or cyanosis she does have a trace to 1+ edema. Results - Labs CBC & BMP: 01/01/17 05:48 01/01/17 05:48 Lab Results: I have reviewed the past 24 hour labs - Diagnostic Findings Procedure: Chest x-ray: image reviewed by me (Right subpleural masses. Diffuse bilateral interstitial infiltrates unchanged from previous.) Assessment and Plan (1) Pulmonary edema Status: Acute Assessment and plan: May be ahead on fluids. He has been getting hydration and his renal function is normal. Will check BNP and get echocardiogram. Diuresed vigorously. Serum proteins are low which may aggravate this. Other less likely cause may be related to chemotherapy. This does not look like pneumonia. 01/01/2017 this appears to be noncardiac pulmonary edema. His BNP and echocardiogram were normal. This could be simply fluid overload but I think that is unlikely. Medications that he has had do not frequently calls 9 cardiac pulmonary edema. Radiation pneumonitis may be a factor although the infiltrates do not take on any kind of a square appearance. We will treat him for all of these including possible infection. Prognosis is poor. Current Visit: Yes (2) Debility Status: Acute Assessment and plan: Due to widespread metastatic disease and inactivity Current Visit: Yes (3) Severe protein-calorie malnutrition Status: Acute Assessment and plan: Low serum albumin. This aggravates pulmonary edema. Current Visit: Yes (4) Intractable pain Status: Acute Assessment and plan: Managed by Dr. Silva. Due to multiple bony metastasis Current Visit: Yes (5) Lung cancer Status: Acute Assessment and plan: Stage IV squamous cell lung cancer. I do note the patient is a DO NOT RESUSCITATE. 01/01/2017 rapid progression of lymphangitic spread is a possibility as well although it seems to be too rapid and involving most of both lungs which would be unusual. Current Visit: Yes
--- NOTE | 2017-01-01 09:32 | XRay Report ---
History: Congestive heart failure Date: 01/01/2017 Study: Chest x-ray single view portable Comparison exam: December 31, 2016 The cardiac silhouette is not enlarged. The mediastinal contours are stable. There is continued groundglass infiltrate/edema bilaterally which is grossly similar. Numerous noncalcified pleural-based masses in the mid to lower right hemithorax are present as before in this patient with a history of lung cancer. There is no pleural effusion. Osseous structures are unchanged. Impression: Continued bilateral infiltrate/edema without gross change. Multiple lung masses on the right as before PROCEDURE INTERPRETED AT [facility] DEPARTMENT OF RADIOLOGY Final Report Signed by: Dr. Ursula Azar
[2017-01-01] MEDS: LACTULOSE 20 GM/30 ML UDCUP PO PRN (11:30)
[2017-01-01] MEDS: POLYETHYLENE GLYCOL POWDER 17 GM PACK PO SCH (11:30)
[2017-01-01] MEDS: AMITRIPTYLINE 25 MG TABLET PO SCH (20:28)
[2017-01-02] MEDS: ALBUTEROL/IPRATROPIUM 3 ML NEB RESP TX SCH ×4 (01:58→19:17)
[2017-01-02] MEDS: HYDROmorphone 2 MG TABLET PO PRN ×4 (03:33→20:37)
[2017-01-02 06:40] LABS: Albumin 1.8 G/DL (3.4-5.0); Bilirubin,Total 1.8 MG/DL (0.2-1.0); Calcium 7.4 MG/DL (8.5-10.1); Osmolality,Calculated 273.1 MOS/KG (273-304); Potassium 5.8 MMOL/L (3.5-5.1); Total Protein 5.6 G/DL (6.4-8.3)
[2017-01-02] MEDS: FUROSEMIDE 20 MG TABLET PO SCH ×2 (07:27→09:55)
[2017-01-02] MEDS: tiZANidine 4 MG TABLET PO SCH ×4 (07:27→20:36)
[2017-01-02] MEDS: methylPREDNISolone SOD SUC 40 MG/1 ML VIAL IV SCH ×2 (07:28→17:33)
[2017-01-02] MEDS: FOLIC ACID 1 MG TABLET PO SCH ×2 (07:28→09:55)
[2017-01-02] MEDS: FUROSEMIDE 40 MG/4 ML VIAL IV SCH ×2 (07:31→14:27)
[2017-01-02] MEDS: LEVOFLOXACIN INJ 500 MG in PREMIX 1 EACH IV SCH (07:32)
[2017-01-02 08:10] LABS: Basophils % 0.1 % (0.0-0.8); Hemoglobin 9.9 GM/DL (14.0-18.0); Immature Granulocytes % 0.5 %; Immature Granulocytes Absolute 0.09 #; Lymphocytes # 0.7 10*3/uL (1.4-4.0); Lymphocytes % 4.3 % (21.2-54.2); Mean Corpuscular Hemoglobin 30 PG (27-34); Mean Corpuscular Volume 91.2 FL (87-102); Mean Platelet Volume 12.3 FL (9.6-12.0); Monocytes % 0.1 % (1.7-12.7); Neutrophils # 16.1 10*3/uL (1.4-7.4); Red Blood Count 3.29 MC/CUMM (3.8-5.5); White Blood Count 16.9 T/CUMM (4-12)
[2017-01-02 08:13] LABS: Platelet Count 78 T/CUMM (130-400)
--- NOTE | 2017-01-02 08:27 | XRay Report ---
History: Pulmonary infiltrates. History of lung cancer Date: 01/02/2017 Study: Chest x-ray single view portable Comparison exam: 01/01/2017 The cardiomediastinal silhouette is unchanged. The groundglass and patchy and strandy bilateral infiltrate/edema in both lungs persists without significant interval change. Underlying pulmonary masses in the right mid to lower lung are unchanged in this patient with known metastatic lung cancer. There is no pleural effusion of significance. Osseous structures are unchanged. There is previous fracture deformity of the midshaft left clavicle. There is evidence of previous kyphoplasty at the thoracolumbar junction. Impression: Continued bilateral pulmonary infiltrate/edema without change. Pulmonary masses in the right lung as before right PROCEDURE INTERPRETED AT [facility] DEPARTMENT OF RADIOLOGY Final Report Signed by: Dr. Ursula zAar
[2017-01-02 08:43] LABS: Hypochromasia 1+
[2017-01-02 08:44] LABS: Microcytosis 1+; Ovalocytes Few
[2017-01-02 08:45] LABS: Basophilic Stippling Slight
[2017-01-02 08:46] LABS: Platelet Estimate Decreased
[2017-01-02 08:52] LABS: Band Neutrophils 1 % (0-10); Lymphocytes 3 % (20-55); Segmented Neutrophils 96 % (50-85); Total Cells Counted 100
[2017-01-02] MEDS: ONDANSETRON 4 MG/2 ML VIAL IV PRN (09:26)
[2017-01-02] MEDS ORDERED: HYDROmorphone 2 MG/1 ML VIAL IV ONE (09:32)
--- NOTE | 2017-01-02 10:00 | Oncology Progress Note ---
Oncology Subjective PN Interval history: Lab work today includes white cell count of 16,900 with a hemoglobin of 9.9 and a platelet count of 78,000. The comprehensive metabolic profile includes a rising total bilirubin of 1.8 today. Serum creatinine is 0.3. Alkaline phosphatase today is 359 with an LDH of 455. His chest x-ray continues to demonstrate tumor in the right lateral chest at the level of the hilum along with right hilar adenopathy. In addition there are diffuse infiltrates that may represent lymphoma but I am concerned about the possibility of lymphangitic spread of the lung cancer. The metastatic disease on his manubrium is draining. We will ask wound care to assess that with this. He received Alimta 750 mg and carboplatin 120 mg on December 30, 2016. These were given by vein and we are monitoring for toxicity. On physical examination, the patient is emaciated and cachectic and acutely as well as chronically ill. He is tachypneic. He is hypoxic. Lids and conjunctivae are normal. Cranial nerves II through XII are intact. There are no focal neurologic deficits. Breath sounds are coarse throughout without rubs , rales or rhonchi. His heart rhythm is regular without murmur, gallop or rub. There is no jugular venous distention. He had significant left arm edema 2 days ago. It continues to decrease. He is vomited every morning for the last 3 mornings. We are adding Kytril on a regular basis to his antibiotic therapy. We are also going back to intravenous Dilaudid because of his intractable nausea and vomiting. His prognosis is not good. This was third line chemotherapy for his lung cancer. Exam - Constitutional Vitals: Period Temp Pulse Resp BP Sys/Kwok Pulse Ox Last 24 Hr 96.4 F-97.8 F 88-115 18-22 91-112/50-67 90-99 Results - Labs CBC & BMP: 01/02/17 08:05 01/02/17 03:42
[2017-01-02] MEDS: HYDROmorphone PCA 30 MG/30 ML SYRINGE IV SCH (11:30)
[2017-01-02] MEDS: SODIUM CHLORIDE 0.9% 1,000 ML IV SCH (12:47)
[2017-01-02] MEDS: LACTULOSE 20 GM/30 ML UDCUP PO PRN (14:45)
[2017-01-02] MEDS: POLYETHYLENE GLYCOL POWDER 17 GM PACK PO SCH (14:45)
[2017-01-02] MEDS: AMITRIPTYLINE 25 MG TABLET PO SCH (20:36)
[2017-01-02] MEDS: GRANISETRON 1 MG/1 ML VIAL IV SCH (20:36)
[2017-01-03] MEDS: ALBUTEROL/IPRATROPIUM 3 ML NEB RESP TX SCH ×4 (00:17→19:17)
[2017-01-03] MEDS: methylPREDNISolone SOD SUC 40 MG/1 ML VIAL IV SCH ×3 (00:44→15:56)
[2017-01-03 05:48] LABS: Basophils % 0.1 % (0.0-0.8); Hematocrit 26.9 VOL% (42.0-52.0); Hemoglobin 8.7 GM/DL (14.0-18.0); Immature Granulocytes % 0.6 %; Immature Granulocytes Absolute 0.08 #; Lymphocytes # 0.4 10*3/uL (1.4-4.0); Mean Corpuscular HGB Conc 32.3 GM/DL (32-36); Mean Corpuscular Hemoglobin 30 PG (27-34); Mean Corpuscular Volume 91.5 FL (87-102); Mean Platelet Volume 13.4 FL (9.6-12.0); Monocytes % 0.1 % (1.7-12.7); Neutrophils # 12.6 10*3/uL (1.4-7.4); Neutrophils % 96.2 % (38.7-73.9); Red Blood Count 2.94 MC/CUMM (3.8-5.5); Red Cell Distribution Width 16.7 % (9.3-17.3); White Blood Count 13.1 T/CUMM (4-12)
[2017-01-03 05:57] LABS: Platelet Count 46 T/CUMM (130-400)
[2017-01-03 06:15] LABS: Albumin 1.8 G/DL (3.4-5.0); Bilirubin,Total 2.3 MG/DL (0.2-1.0); Calcium 7.9 MG/DL (8.5-10.1); Potassium 5.6 MMOL/L (3.5-5.1); Total Protein 5.3 G/DL (6.4-8.3)
[2017-01-03 06:38] LABS: Hypochromasia 1+; Lymphocytes 2 % (20-55); Ovalocytes Slight; Platelet Estimate Decreased; Segmented Neutrophils 98 % (50-85); Total Cells Counted 100
[2017-01-03 06:39] LABS: Giant Platelets Few; Microcytosis 1+
[2017-01-03] MEDS: HYDROmorphone PCA 30 MG/30 ML SYRINGE IV SCH ×2 (07:28→10:22)
--- NOTE | 2017-01-03 08:40 | Pulmonology Progress Note ---
Pulmonary - PN: Subj Interval history: This 51-year-old man has widespread metastatic squamous cell cancer including chest wall involvement left shoulder involvement rib cage involvement. He has had radiation to his chest and left shoulder which was completed about 2 months ago. He now has diffuse infiltrates which have come up rather quickly. I reviewed his medications and neither the Alimta nor the carboplatin have any significant pulmonary toxicity or cardiac toxicity. We may be seeing some radiation pneumonitis. Superimposed pneumonia is a possibility. Noncardiac pulmonary edema also a possibility. Will treat with steroids and empiric antibiotics. Try to reduce oxygen as high oxygen levels can make radiation pneumonitis worse 01/02/2017 patient was seen on this date and note dictated but apparently it did not make the chart. He is coughing up some phlegm. I do think most likely were dealing with interstitial pneumonia. Continue with antibiotics and steroids. Radiation pneumonitis would not give this broad of picture. If it were to be lymphangitic spread it has certainly gone quickly. Exam (Progress Note) - Constitutional Vitals: Period Temp Pulse Resp BP Sys/Kwok Pulse Ox Last 24 Hr 97.4 F-116 F 94-116 16-22 95-106/49-60 87-100 Exam: Patient's alert responsive sitting on the side of the bed wearing his nonrebreathing mask. Pupils are reactive. Neck is supple. Chest reveals some rales bilaterally. A few musical rhonchi. Heart normal rate and rhythm no murmurs. Bandage over his sternum. Abdomen soft nontender no masses. Extremities no clubbing or cyanosis she does have a trace to 1+ edema. Results - Labs CBC & BMP: 01/03/17 04:20 01/03/17 04:20 Lab Results: I have reviewed the past 24 hour labs - Diagnostic Findings Procedure: Chest x-ray: image reviewed by me (Little change in diffuse interstitial infiltrates bilaterally, and right peripheral luminary nodules in the mid lung.) Assessment and Plan (1) Pulmonary edema Status: Acute Assessment and plan: May be ahead on fluids. He has been getting hydration and his renal function is normal. Will check BNP and get echocardiogram. Diuresed vigorously. Serum proteins are low which may aggravate this. Other less likely cause may be related to chemotherapy. This does not look like pneumonia. 01/01/2017 this appears to be noncardiac pulmonary edema. His BNP and echocardiogram were normal. This could be simply fluid overload but I think that is unlikely. Medications that he has had do not frequently cause non cardiac pulmonary edema. Radiation pneumonitis may be a factor although the infiltrates do not take on any kind of a square appearance. We will treat him for all of these including possible infection. Prognosis is poor. 01/02/2017 this does not appear to be cardiac vomiting or edema. Continuing antibiotics oxygen and steroids oxygen supplement. Current Visit: Yes (2) Debility Status: Acute Assessment and plan: Due to widespread metastatic disease and inactivity Current Visit: Yes (3) Severe protein-calorie malnutrition Status: Acute Assessment and plan: Low serum albumin. This aggravates pulmonary edema. 01/02/2017 continuing nutritional support. Current Visit: Yes (4) Intractable pain Status: Acute Assessment and plan: Managed by Dr. Silva. Due to multiple bony metastasis Current Visit: Yes (5) Lung cancer Status: Acute Assessment and plan: Stage IV squamous cell lung cancer. I do note the patient is a DO NOT RESUSCITATE. 01/01/2017 rapid progression of lymphangitic spread is a possibility as well although it seems to be too rapid and involving most of both lungs which would be unusual. 01/02/2017 do not think this is lymphangitic spread as well as come up too quickly. However cannot rule it out Current Visit: Yes
--- NOTE | 2017-01-03 08:44 | Pulmonology Progress Note ---
Pulmonary - PN: Subj Interval history: This 51-year-old man has widespread metastatic squamous cell cancer including chest wall involvement left shoulder involvement rib cage involvement. He has had radiation to his chest and left shoulder which was completed about 2 months ago. He now has diffuse infiltrates which have come up rather quickly. I reviewed his medications and neither the Alimta nor the carboplatin have any significant pulmonary toxicity or cardiac toxicity. We may be seeing some radiation pneumonitis. Superimposed pneumonia is a possibility. Noncardiac pulmonary edema also a possibility. Will treat with steroids and empiric antibiotics. Try to reduce oxygen as high oxygen levels can make radiation pneumonitis worse 01/02/2017 patient was seen on this date and note dictated but apparently it did not make the chart. He is coughing up some phlegm. I do think most likely were dealing with interstitial pneumonia. Continue with antibiotics and steroids. Radiation pneumonitis would not give this broad of picture. If it were to be lymphangitic spread it has certainly gone quickly. 01/03/2017 patient now tolerating 50% Ventimask. Oxygen saturation better. Lungs sound a little better. Continue empiric antibiotics and steroids. Exam (Progress Note) - Constitutional Vitals: Period Temp Pulse Resp BP Sys/Kwok Pulse Ox Last 24 Hr 97.4 F-116 F 94-116 16-22 95-106/49-60 87-100 Exam: Patient's alert responsive sitting on the side of the bed wearing venti- mask. Pupils are reactive. Neck is supple. Chest reveals some rales bilaterally. A few musical rhonchi. Heart normal rate and rhythm no murmurs. Bandage over his sternum. Abdomen soft nontender no masses. Extremities no clubbing or cyanosis she does have a trace to 1+ edema. Results - Labs CBC & BMP: 01/03/17 04:20 01/03/17 04:20 Lab Results: I have reviewed the past 24 hour labs Assessment and Plan (1) Pulmonary edema Status: Acute Assessment and plan: May be ahead on fluids. He has been getting hydration and his renal function is normal. Will check BNP and get echocardiogram. Diuresed vigorously. Serum proteins are low which may aggravate this. Other less likely cause may be related to chemotherapy. This does not look like pneumonia. 01/01/2017 this appears to be noncardiac pulmonary edema. His BNP and echocardiogram were normal. This could be simply fluid overload but I think that is unlikely. Medications that he has had do not frequently cause non cardiac pulmonary edema. Radiation pneumonitis may be a factor although the infiltrates do not take on any kind of a square appearance. We will treat him for all of these including possible infection. Prognosis is poor. 01/02/2017 this does not appear to be cardiac pulmonary edema. Continuing antibiotics oxygen and steroids oxygen supplement. 01/03/2017 this does not appear to be cardiac edema. Continue with empiric antibiotic for infection. Current Visit: Yes (2) Debility Status: Acute Assessment and plan: Due to widespread metastatic disease and inactivity 01/03/2017 increase activity when oxygen requirements decreased Current Visit: Yes (3) Severe protein-calorie malnutrition Status: Acute Assessment and plan: Low serum albumin. This aggravates pulmonary edema. 01/02/2017 continuing nutritional support. 01/03/2017 continuing nutritional support Current Visit: Yes (4) Intractable pain Status: Acute Assessment and plan: Managed by Dr. Silva. Due to multiple bony metastasis 01/03/2017 getting an infusion of Dilaudid. Current Visit: Yes (5) Lung cancer Status: Acute Assessment and plan: Stage IV squamous cell lung cancer. I do note the patient is a DO NOT RESUSCITATE. 01/01/2017 rapid progression of lymphangitic spread is a possibility as well although it seems to be too rapid and involving most of both lungs which would be unusual. 01/02/2017 do not think this is lymphangitic spread as well as come up too quickly. However cannot rule it out. 01/03/2017 prognosis is poor. Current Visit: Yes
[2017-01-03] MEDS: HYDROmorphone 2 MG TABLET PO PRN ×3 (09:14→19:34)
[2017-01-03] MEDS: tiZANidine 4 MG TABLET PO SCH ×3 (09:14→21:36)
[2017-01-03] MEDS: FOLIC ACID 1 MG TABLET PO SCH (09:14)
[2017-01-03] MEDS: FUROSEMIDE 20 MG TABLET PO SCH (09:14)
[2017-01-03] MEDS: FUROSEMIDE 40 MG/4 ML VIAL IV SCH (09:15)
[2017-01-03] MEDS: fentaNYL 100 MCG/HR PATCH TRANSDERM SCH ×2 (09:15)
[2017-01-03] MEDS: POLYETHYLENE GLYCOL POWDER 17 GM PACK PO SCH (09:16)
[2017-01-03] MEDS: LEVOFLOXACIN INJ 500 MG in PREMIX 1 EACH IV SCH (09:16)
--- NOTE | 2017-01-03 09:18 | Oncology Progress Note ---
Oncology Subjective PN Interval history: Severe intractable pain secondary to metastatic stage IV squamous cell lung carcinoma He is back on parenteral narcotics for pain and I do not think I will ever get off them. 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 Angulo now has received Alimta 750 mg and carboplatin 120 mg given IV on December 30. Received Emaciation and cachexia COPD In addition, he is becoming hypoxic and he is on a 100% oxygen rebreather. Anemia, multifactorial including chronic disease mainly and partly due to chemotherapy and radiation Lab work today includes a white cell count 13,100 with a hemoglobin of 8.7 and dropping. It was 9.9 yesterday. In view of the fact that his hemoglobin is dropping, I am ordering a blood transfusion. thrombocytopenia:His platelet count has dropped to 46,000 after chemotherapy. He is acutely and chronically ill appearing on physical examination. He is oriented and alert. Cranial nerves II through XII are intact. There are no focal neurologic deficits. He is tachypneic but his respirations are unlabored otherwise. The left arm edema persists but it is gradually improving. See orders. I will be monitoring blood work daily at this point. Exam - Constitutional Vitals: Period Temp Pulse Resp BP Sys/Kwok Pulse Ox Last 24 Hr 97.4 F-116 F 94-116 16-22 95-106/49-60 87-100 Results - Labs CBC & BMP: 01/03/17 04:20 01/03/17 04:20
[2017-01-03] MEDS ORDERED: SODIUM CHLORIDE 0.9% 250 ML IV PRN (10:14)
[2017-01-03] MEDS: SODIUM CHLORIDE 0.9% 1,000 ML IV SCH (10:22)
[2017-01-03] MEDS: ONDANSETRON 4 MG/2 ML VIAL IV PRN (12:21)
[2017-01-03] MEDS: BACITRACIN OINT 28.35 GM TUBE TOP SCH (15:57)
[2017-01-03] MEDS: AMITRIPTYLINE 25 MG TABLET PO SCH (21:36)
[2017-01-03] MEDS: GRANISETRON 1 MG/1 ML VIAL IV SCH (21:37)
[2017-01-04] MEDS: HYDROmorphone 2 MG TABLET PO PRN ×5 (00:02→15:21)
[2017-01-04] MEDS: methylPREDNISolone SOD SUC 40 MG/1 ML VIAL IV SCH ×3 (00:06→15:21)
[2017-01-04] MEDS: ALBUTEROL/IPRATROPIUM 3 ML NEB RESP TX SCH ×4 (00:55→19:16)
[2017-01-04 04:41] LABS: Basophils % 0.2 % (0.0-0.8); Hematocrit 35.5 VOL% (42.0-52.0); Hemoglobin 11.9 GM/DL (14.0-18.0); Immature Granulocytes % 0.9 %; Immature Granulocytes Absolute 0.15 #; Lymphocytes # 0.4 10*3/uL (1.4-4.0); Lymphocytes % 2.3 % (21.2-54.2); Mean Corpuscular HGB Conc 33.5 GM/DL (32-36); Mean Corpuscular Hemoglobin 30 PG (27-34); Monocytes % 0.1 % (1.7-12.7); Neutrophils # 16.6 10*3/uL (1.4-7.4); Neutrophils % 96.5 % (38.7-73.9); Red Blood Count 3.99 MC/CUMM (3.8-5.5); Red Cell Distribution Width 16.2 % (9.3-17.3); White Blood Count 17.2 T/CUMM (4-12)
[2017-01-04 04:54] LABS: Platelet Count 28 T/CUMM (130-400)
[2017-01-04 05:05] LABS: Albumin 2.1 G/DL (3.4-5.0); Bilirubin,Total 1.8 MG/DL (0.2-1.0); Calcium 7.5 MG/DL (8.5-10.1); Osmolality,Calculated 268.5 MOS/KG (273-304); Potassium 4.4 MMOL/L (3.5-5.1); Total Protein 5.7 G/DL (6.4-8.3)
[2017-01-04 06:00] LABS: Band Neutrophils 2 % (0-10); Hypochromasia 1+; Lymphocytes 1 % (20-55); Microcytosis 1+; Segmented Neutrophils 96 % (50-85); Total Cells Counted 100
[2017-01-04 06:01] LABS: Ovalocytes Few; Platelet Estimate Decreased; Tear Drop Cells Slight
[2017-01-04] MEDS: FUROSEMIDE 40 MG/4 ML VIAL IV SCH (08:58)
[2017-01-04] MEDS: MAGNESIUM HYDROXIDE SUSP 30 ML UDCUP PO PRN (08:58)
[2017-01-04] MEDS: FUROSEMIDE 20 MG TABLET PO SCH (08:59)
[2017-01-04] MEDS: BACITRACIN OINT 28.35 GM TUBE TOP SCH (08:59)
[2017-01-04] MEDS: FOLIC ACID 1 MG TABLET PO SCH (08:59)
[2017-01-04] MEDS: POLYETHYLENE GLYCOL POWDER 17 GM PACK PO SCH (08:59)
[2017-01-04] MEDS: LEVOFLOXACIN INJ 500 MG in PREMIX 1 EACH IV SCH (08:59)
[2017-01-04] MEDS: tiZANidine 4 MG TABLET PO SCH ×3 (08:59→20:40)
--- NOTE | 2017-01-04 10:45 | Oncology Progress Note ---
Oncology Subjective PN Interval history: Severe intractable pain secondary to metastatic stage IV squamous cell lung carcinoma He is back on parenteral narcotics for pain and I do not think I will ever get off them. 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 Angulo now has received Alimta 750 mg and carboplatin 120 mg given IV on December 30. Received Emaciation and cachexia Serum albumin 2.1 reflecting malnutrition. COPD In addition, he is becoming hypoxic and he is on a 100% oxygen rebreather. Anemia, multifactorial including chronic disease mainly and partly due to chemotherapy and radiation Hemoglobin 11.2 following blood transfusion yesterday. thrombocytopenia:His platelet count has dropped to 28,000 after chemotherapy. Additional lab work done today: Creatinine 0.3 Sodium 132 Alkaline phosphatase 258 and LDH 259 Physical examination: General: The patient is chronically ill-appearing and obviously weak and debilitated. Eyes: Lids and conjunctive are normal. Neurologic: Cranial nerves II through XII are intact. There are no focal neurologic deficits. Psychiatric: He appears to be fully oriented and alert although he is weak and when I walked in he appeared to be sleeping with his eyes open. Pulmonary: He has very coarse breath sounds bilaterally with prolonged expiratory phase of respiration. Mr. Poon is critically ill. He is on third line chemotherapy for his lung cancer and he is not doing well. I am concerned about his short-term survival, much less his long-term survival. Exam - Constitutional Vitals: Period Temp Pulse Resp BP Sys/Kwok Pulse Ox Last 24 Hr 96.1 F-98.3 F 61-110 12-22 91-113/51-76 94-100 Results - Labs CBC & BMP: 01/04/17 02:49 01/04/17 02:49
[2017-01-04] MEDS: ONDANSETRON 4 MG/2 ML VIAL IV PRN ×2 (11:57→18:50)
[2017-01-04] MEDS: HYDROmorphone PCA 30 MG/30 ML SYRINGE IV SCH (12:02)
[2017-01-04] MEDS: SODIUM CHLORIDE 0.9% 1,000 ML IV SCH ×2 (12:02→17:04)
--- NOTE | 2017-01-04 16:28 | Pulmonology Progress Note ---
Pulmonary - PN: Subj Interval history: This is a 51-year-old male who has a history of squamous cell carcinoma the lung. He has been treated. His include some radiation therapy. He has bilateral interstitial infiltrates. He has underlying COPD. He has widespread medicines static disease. His prognosis is poor. He has been treated for pneumonia. I have reviewed his chest x-ray of 01/02/2017. This does not have the appearance of radiation pneumonitis. Sodium is 132 potassium is 4.4 creatinine is 0.3 BUNs 18 white blood cell count 17,200 H&H 11.9/35.5 and platelets are decreased to 28,000. Microbiology. No positive cultures Vital signs. See below. Psychiatric. Oriented 3 General. In bed in no apparent distress. Face. Symmetrical Neck. No meningismus Chest. Fairly clear with Velcro rales. Heart no gallop Abdomen nondistended positive bowel sounds Extremities. Nothing to suggest deep venous thrombophlebitis The remainder the physical exam is negative Plan. 1. See my note above 2. I made no changes today. Exam (Progress Note) - Constitutional Vitals: Period Temp Pulse Resp BP Sys/Kwok Pulse Ox Last 24 Hr 96.1 F-98.3 F 91-110 12-22 91-112/53-73 96-100 Results - Labs CBC & BMP: 01/04/17 02:49 01/04/17 02:49
[2017-01-04] MEDS: DICLOFENAC 1.3% PATCH 5/PACK TRANSDERM SCH (16:40)
[2017-01-04] MEDS: GRANISETRON 1 MG/1 ML VIAL IV SCH (20:40)
[2017-01-04] MEDS: AMITRIPTYLINE 25 MG TABLET PO SCH (20:40)
[2017-01-05] MEDS: ALBUTEROL/IPRATROPIUM 3 ML NEB RESP TX SCH ×4 (00:11→20:14)
[2017-01-05] MEDS: methylPREDNISolone SOD SUC 40 MG/1 ML VIAL IV SCH ×3 (00:18→15:30)
[2017-01-05 03:33] LABS: Basophils % 0.2 % (0.0-0.8); Eosinophils % 0.2 % (0.00-10.9); Hemoglobin 10.9 GM/DL (14.0-18.0); Immature Granulocytes Absolute 0.12 #; Lymphocytes # 0.4 10*3/uL (1.4-4.0); Lymphocytes % 3.7 % (21.2-54.2); Mean Corpuscular Hemoglobin 30 PG (27-34); Mean Corpuscular Volume 89.2 FL (87-102); Monocytes # 0.1 10*3/uL (0.11-0.8); Monocytes % 0.8 % (1.7-12.7); Neutrophils # 11.2 10*3/uL (1.4-7.4); Neutrophils % 94.1 % (38.7-73.9); Red Cell Distribution Width 15.9 % (9.3-17.3); White Blood Count 11.9 T/CUMM (4-12)
[2017-01-05 04:01] LABS: Platelet Count 16 T/CUMM (130-400)
[2017-01-05 04:14] LABS: Bilirubin,Total 1.6 MG/DL (0.2-1.0); Calcium 7.3 MG/DL (8.5-10.1); Lymphocytes 3 % (20-55); Osmolality,Calculated 267.5 MOS/KG (273-304); Platelet Estimate Decreased; Potassium 4.3 MMOL/L (3.5-5.1); Segmented Neutrophils 96 % (50-85); Total Cells Counted 100; Total Protein 5.6 G/DL (6.4-8.3)
[2017-01-05] MEDS: ONDANSETRON 4 MG TABLET PO PRN (04:16)
[2017-01-05] MEDS: FUROSEMIDE 20 MG TABLET PO SCH (08:13)
[2017-01-05] MEDS: MAGNESIUM HYDROXIDE SUSP 30 ML UDCUP PO PRN (09:03)
[2017-01-05] MEDS: FOLIC ACID 1 MG TABLET PO SCH (09:04)
[2017-01-05] MEDS: tiZANidine 4 MG TABLET PO SCH ×3 (09:04→21:29)
[2017-01-05] MEDS: FUROSEMIDE 40 MG/4 ML VIAL IV SCH (09:04)
[2017-01-05] MEDS: POLYETHYLENE GLYCOL POWDER 17 GM PACK PO SCH (09:04)
[2017-01-05] MEDS: LEVOFLOXACIN INJ 500 MG in PREMIX 1 EACH IV SCH (09:04)
[2017-01-05] MEDS: BACITRACIN OINT 28.35 GM TUBE TOP SCH (09:05)
[2017-01-05] MEDS: DICLOFENAC 1.3% PATCH 5/PACK TRANSDERM SCH ×2 (09:06→21:33)
[2017-01-05] MEDS: HYDROmorphone 2 MG TABLET PO PRN ×2 (09:13→15:27)
[2017-01-05] MEDS: HYDROmorphone PCA 30 MG/30 ML SYRINGE IV SCH (10:32)
--- NOTE | 2017-01-05 11:10 | Oncology Progress Note ---
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 Angulo now has received Alimta 750 mg and carboplatin 120 mg given IV on December 30. White cell count 11,900 today. Emaciation and cachexia Serum albumin 2.1 reflecting malnutrition. COPD In addition, he is becoming hypoxic and he is on a 100% oxygen rebreather. Anemia, multifactorial including chronic disease mainly and partly due to chemotherapy and radiation Hemoglobin 10.9 following blood transfusion yesterday. thrombocytopenia:His platelet count has dropped to 16,000 after chemotherapy. We will transfuse if the platelet count dropped to 15,000 or he begins bleeding. The alkaline phosphatase is down to 213 today. It was 258 yesterday. The LDH is relatively stable at 250. His serum albumin is 2.0 reflecting malnutrition. The serum creatinine is 0.2. Exam - Constitutional Vitals: Period Temp Pulse Resp BP Sys/Kwok Pulse Ox Last 24 Hr 97.3 F-98.2 F 78-120 12-22 94-126/52-68 96-100 Results - Labs CBC & BMP: 01/05/17 02:36 01/05/17 02:36
[2017-01-05] MEDS: SODIUM CHLORIDE 0.9% 1,000 ML IV SCH (11:59)
[2017-01-05] MEDS: ONDANSETRON 4 MG/2 ML VIAL IV PRN ×2 (12:39→19:02)
[2017-01-05] MEDS: LACTULOSE 20 GM/30 ML UDCUP PO PRN (12:43)
--- NOTE | 2017-01-05 13:30 | Pulmonology Progress Note ---
Pulmonary - PN: Subj Interval history: This is a 51-year-old male who has a history of squamous cell carcinoma the lung. He has been treated. His include some radiation therapy. He has bilateral interstitial infiltrates. He has underlying COPD. He has widespread medicines static disease. His prognosis is poor. He has been treated for pneumonia. I have reviewed his chest x-ray of 01/02/2017. This does not have the appearance of radiation pneumonitis. Sodium is 132 potassium is 4.4 creatinine is 0.3 BUNs 18 white blood cell count 17,200 H&H 11.9/35.5 and platelets are decreased to 28,000. Microbiology. No positive cultures 01/05/2017. This patient is stable this morning. Family member was asleep on the couch next to him. He has no new requests and he has no complaints. Sodium is 132. Potassium is 4.3. Creatinine is 0.2 with a BUN of 16. White blood cell count is dropped to 11,900 with 94% segs. H&H is 10.9/33.0. There are no positive cultures for Vital signs. See below. Psychiatric. Oriented 3 General. In bed in no apparent distress. Face. Symmetrical Neck. No meningismus Chest. Fairly clear with Velcro rales. Heart no gallop Abdomen nondistended positive bowel sounds Extremities. Nothing to suggest deep venous thrombophlebitis The remainder the physical exam is negative Plan. 01/04/2017. 1. See my note above 2. I made no changes today. 01/05/2017 1. See today's note above. 2. Continue present regimen. Exam (Progress Note) - Constitutional Vitals: Period Temp Pulse Resp BP Sys/Kwok Pulse Ox Last 24 Hr 97.3 F-98.2 F 78-120 12-22 94-126/52-69 97-100 Results - Labs CBC & BMP: 01/05/17 02:36 01/05/17 02:36
[2017-01-05] MEDS: AMITRIPTYLINE 25 MG TABLET PO SCH (21:29)
[2017-01-05] MEDS: GRANISETRON 1 MG/1 ML VIAL IV SCH (21:29)
[2017-01-06] MEDS: methylPREDNISolone SOD SUC 40 MG/1 ML VIAL IV SCH ×3 (00:17→15:40)
[2017-01-06] MEDS: ALBUTEROL/IPRATROPIUM 3 ML NEB RESP TX SCH ×4 (00:49→19:56)
[2017-01-06 03:27] LABS: Eosinophils % 0.6 % (0.00-10.9); Immature Granulocytes % 7.5 %; Lymphocytes # 0.3 10*3/uL (1.4-4.0); Lymphocytes % 5.5 % (21.2-54.2); Mean Corpuscular HGB Conc 33.3 GM/DL (32-36); Mean Corpuscular Hemoglobin 30 PG (27-34); Mean Corpuscular Volume 88.5 FL (87-102); Monocytes # 0.2 10*3/uL (0.11-0.8); Monocytes % 4.5 % (1.7-12.7); Neutrophils # 4.4 10*3/uL (1.4-7.4); Neutrophils % 81.9 % (38.7-73.9); Red Blood Count 3.39 MC/CUMM (3.8-5.5); Red Cell Distribution Width 15.3 % (9.3-17.3); White Blood Count 5.3 T/CUMM (4-12)
[2017-01-06 03:33] LABS: Platelet Count 7 T/CUMM (130-400)
[2017-01-06 03:59] LABS: Albumin 1.9 G/DL (3.4-5.0); Osmolality,Calculated 262.8 MOS/KG (273-304); Potassium 3.8 MMOL/L (3.5-5.1)
[2017-01-06 04:00] LABS: Band Neutrophils 3 % (0-10); Eosinophils 1 % (0-10); Lymphocytes 4 % (20-55); Segmented Neutrophils 92 % (50-85); Total Cells Counted 100
[2017-01-06 04:10] LABS: Anisocytosis 1+
[2017-01-06 04:11] LABS: Ovalocytes Few; Platelet Estimate Decreased; Tear Drop Cells 1+
[2017-01-06] MEDS: HYDROmorphone PCA 30 MG/30 ML SYRINGE IV SCH ×2 (05:03→14:13)
[2017-01-06] MEDS: LEVOFLOXACIN INJ 500 MG in PREMIX 1 EACH IV SCH (08:27)
[2017-01-06] MEDS: HYDROmorphone 2 MG TABLET PO PRN ×2 (08:55→21:04)
[2017-01-06] MEDS: tiZANidine 4 MG TABLET PO SCH ×3 (08:56→20:59)
[2017-01-06] MEDS: FUROSEMIDE 20 MG TABLET PO SCH (08:57)
[2017-01-06] MEDS: FOLIC ACID 1 MG TABLET PO SCH (08:57)
[2017-01-06] MEDS: fentaNYL 100 MCG/HR PATCH TRANSDERM SCH ×2 (08:58→09:16)
[2017-01-06] MEDS: FUROSEMIDE 40 MG/4 ML VIAL IV SCH (09:02)
[2017-01-06] MEDS: DICLOFENAC 1.3% PATCH 5/PACK TRANSDERM SCH ×2 (09:17→20:59)
--- NOTE | 2017-01-06 10:22 | Oncology Progress Note ---
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 Angulo now has received Alimta 750 mg and carboplatin 120 mg given IV on December 30. White cell count 11,900 today. Emaciation and cachexia Serum albumin 1.9 reflecting malnutrition. COPD In addition, he is becoming hypoxic and he is on a 100% oxygen rebreather. Anemia, multifactorial including chronic disease mainly and partly due to chemotherapy and radiation Hemoglobin 10.0 after transfusion 2 days ago. thrombocytopenia:His platelet count has dropped to 7000. He was transfused with single donor platelets today. Physical examination: General: He is acutely and chronically ill as well as emaciated and cachectic. Eyes: Normal lids and conjunctivae. ENT: His trachea is midline. His hearing is normal. He has no neck masses. Lungs: His chest moves symmetrically with respiration and I hear no wheezing, rubs or rales. Neurologic: Cranial nerves II through XII are intact. The no focal neurologic deficits. We will continue parenteral narcotics for pain. We are continuing supportive care after chemotherapy with Alimta and carboplatin. I had hoped to treat him with Keytruda as well but I cannot get it while he is hospitalized. Exam - Constitutional Vitals: Period Temp Pulse Resp BP Sys/Kwok Pulse Ox Last 24 Hr 96.7 F-99.3 F 87-111 14-20 96-108/55-69 96-100 Results - Labs CBC & BMP: 01/06/17 02:03 01/06/17 02:03
[2017-01-06] MEDS: BACITRACIN OINT 28.35 GM TUBE TOP SCH (11:12)
[2017-01-06] MEDS: ONDANSETRON 4 MG TABLET PO PRN (12:19)
--- NOTE | 2017-01-06 13:51 | Pulmonology Progress Note ---
Pulmonary - PN: Subj Interval history: This is a 51-year-old male who has a history of squamous cell carcinoma the lung. He has been treated. His include some radiation therapy. He has bilateral interstitial infiltrates. He has underlying COPD. He has widespread medicines static disease. His prognosis is poor. He has been treated for pneumonia. I have reviewed his chest x-ray of 01/02/2017. This does not have the appearance of radiation pneumonitis. Sodium is 132 potassium is 4.4 creatinine is 0.3 BUNs 18 white blood cell count 17,200 H&H 11.9/35.5 and platelets are decreased to 28,000. Microbiology. No positive cultures 01/05/2017. This patient is stable this morning. Family member was asleep on the couch next to him. He has no new requests and he has no complaints. Sodium is 132. Potassium is 4.3. Creatinine is 0.2 with a BUN of 16. White blood cell count is dropped to 11,900 with 94% segs. H&H is 10.9/33.0. There are no positive cultures for 01/06/2017. Patient appears comfortable and he is in no distress. He says he is doing fine and he is stable. His lab shows a platelet count of 7000. H&H is 10.0/30.0. White count is 5300. Sodium is 130 with a potassium 3.8. Creatinine is 0.30 with a BUN of 14. There are no positive cultures. Patient had one temperature 99.3. Vital signs. See below. Psychiatric. Oriented 3 General. In bed in no apparent distress. Face. Symmetrical Neck. No meningismus Chest. Fairly clear with Velcro rales. Heart no gallop Abdomen nondistended positive bowel sounds Extremities. Nothing to suggest deep venous thrombophlebitis The remainder the physical exam is negative Plan. 01/04/2017. 1. See my note above 2. I made no changes today. 01/05/2017 1. See today's note above. 2. Continue present regimen. 01/06/2017. 1. See my note above for today 2. Platelet count is 7000 3. I did not make any changes in his present regimen. Exam (Progress Note) - Constitutional Vitals: Period Temp Pulse Resp BP Sys/Kwok Pulse Ox Last 24 Hr 96.7 F-99.3 F 87-110 14-20 96-108/55-65 96-100 Results - Labs CBC & BMP: 01/06/17 02:03 01/06/17 02:03
[2017-01-06] MEDS: SODIUM CHLORIDE 0.9% 1,000 ML IV SCH (14:42)
[2017-01-06] MEDS: POLYETHYLENE GLYCOL POWDER 17 GM PACK PO SCH (17:13)
[2017-01-06] MEDS: ONDANSETRON 4 MG/2 ML VIAL IV PRN (19:15)
[2017-01-06] MEDS: AMITRIPTYLINE 25 MG TABLET PO SCH (20:59)
[2017-01-06] MEDS: GRANISETRON 1 MG/1 ML VIAL IV SCH (21:01)
[2017-01-07] MEDS: ONDANSETRON 4 MG TABLET PO PRN
[2017-01-07] MEDS: ALBUTEROL/IPRATROPIUM 3 ML NEB RESP TX SCH ×4 (01:38→19:06)
[2017-01-07] MEDS: HYDROmorphone 2 MG TABLET PO PRN ×2 (05:10→15:21)
--- NOTE | 2017-01-07 07:56 | Oncology Progress Note ---
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 His pain is improving. 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 Angulo now has received Alimta 750 mg and carboplatin 120 mg given IV on December 30. His tumor is actually shrinking in several areas including the manubrium, the left supraclavicular area in the lower left back. I am really surprised with this considering the fact that this is third line chemotherapy and he has received so recently. The chest x-ray is improving as well. Emaciation and cachexia Serum albumin 2.2 today, up from 1.9 yesterday. In addition, his alkaline phosphatase is following and is 180 today. His LDH is normal today at 228. His serum creatinine is 0.4 today. COPD His hypoxemia has improved. We are reducing his FiO2. Anemia, multifactorial including chronic disease mainly and partly due to chemotherapy and radiation Hemoglobin 10.9 today thrombocytopenia:His platelet count is 20,000 today after transfusion yesterday. Exam - Constitutional Vitals: Period Temp Pulse Resp BP Sys/Kwok Pulse Ox Last 24 Hr 96.5 F-97.9 F 74-107 16-20 95-106/57-61 15-100 Results - Labs CBC & BMP: 01/07/17 08:07 01/06/17 02:03
[2017-01-07 08:19] LABS: Basophils % 0.3 % (0.0-0.8); Hematocrit 33.4 VOL% (42.0-52.0); Hemoglobin 10.9 GM/DL (14.0-18.0); Immature Granulocytes Absolute 0.14 #; Lymphocytes # 0.8 10*3/uL (1.4-4.0); Lymphocytes % 11.1 % (21.2-54.2); Mean Corpuscular HGB Conc 32.6 GM/DL (32-36); Mean Corpuscular Hemoglobin 30 PG (27-34); Mean Corpuscular Volume 90.5 FL (87-102); Mean Platelet Volume 11.9 FL (9.6-12.0); Monocytes # 0.6 10*3/uL (0.11-0.8); Neutrophils # 5.5 10*3/uL (1.4-7.4); Neutrophils % 77.6 % (38.7-73.9); Red Blood Count 3.69 MC/CUMM (3.8-5.5); Red Cell Distribution Width 15.1 % (9.3-17.3)
[2017-01-07 08:40] LABS: Platelet Count 20 T/CUMM (130-400)
[2017-01-07 08:46] LABS: Hypochromasia 1+; Ovalocytes Slight; Platelet Estimate Decreased
--- NOTE | 2017-01-07 08:46 | Pulmonology Progress Note ---
Pulmonary - PN: Subj Interval history: This 51-year-old man has widespread metastatic squamous cell cancer including chest wall involvement left shoulder involvement rib cage involvement. He has had radiation to his chest and left shoulder which was completed about 2 months ago. He now has diffuse infiltrates which have come up rather quickly. I reviewed his medications and neither the Alimta nor the carboplatin have any significant pulmonary toxicity or cardiac toxicity. We may be seeing some radiation pneumonitis. Superimposed pneumonia is a possibility. Noncardiac pulmonary edema also a possibility. Will treat with steroids and empiric antibiotics. Try to reduce oxygen as high oxygen levels can make radiation pneumonitis worse 01/02/2017 patient was seen on this date and note dictated but apparently it did not make the chart. He is coughing up some phlegm. I do think most likely were dealing with interstitial pneumonia. Continue with antibiotics and steroids. Radiation pneumonitis would not give this broad of picture. If it were to be lymphangitic spread it has certainly gone quickly. 01/03/2017 patient now tolerating 50% Ventimask. Oxygen saturation better. Lungs sound a little better. Continue empiric antibiotics and steroids. 01/07/2017 patient's O2 sat now in the mid 90s on room air. Chest x-ray this morning shows definite improvement in the interstitial pneumonia. Still has some abnormalities at the left base and has the peripheral nodular changes in the right lung. Overall improved. Will change prednisone and Levaquin to oral medications. Stop IV Lasix. His BNP was normal to begin with. This was an acute interstitial pneumonitis that was likely infectious. Cultures have all been negative. Presumably was bacterial, versus viral. Exam (Progress Note) - Constitutional Vitals: Period Temp Pulse Resp BP Sys/Kwok Pulse Ox Last 24 Hr 96.5 F-97.9 F 74-117 16-20 95-106/57-61 15-100 Exam: Patient's alert responsive sitting on the side of the bed wearing venti- mask. Pupils are reactive. Neck is supple. Chest reveals a few musical rhonchi. Heart normal rate and rhythm no murmurs. Bandage over his sternum. Abdomen soft nontender no masses. Extremities no clubbing or cyanosis he does not have edema. Results - Labs CBC & BMP: 01/07/17 08:07 01/06/17 02:03 - Diagnostic Findings Procedure: Chest x-ray: image reviewed by me (Interstitial infiltrates have improved markedly since 01/02/2017. Still has some interstitial changes at left base. Peripheral nodules on the right are about the same.) Assessment and Plan (1) Pulmonary edema Status: Acute Assessment and plan: May be ahead on fluids. He has been getting hydration and his renal function is normal. Will check BNP and get echocardiogram. Diuresed vigorously. Serum proteins are low which may aggravate this. Other less likely cause may be related to chemotherapy. This does not look like pneumonia. 01/01/2017 this appears to be noncardiac pulmonary edema. His BNP and echocardiogram were normal. This could be simply fluid overload but I think that is unlikely. Medications that he has had do not frequently cause non cardiac pulmonary edema. Radiation pneumonitis may be a factor although the infiltrates do not take on any kind of a square appearance. We will treat him for all of these including possible infection. Prognosis is poor. 01/02/2017 this does not appear to be cardiac pulmonary edema. Continuing antibiotics oxygen and steroids oxygen supplement. 01/03/2017 this does not appear to be cardiac edema. Continue with empiric antibiotic for infection. 01/07/2017 this is noncardiac. Likely was infectious. Bacterial versus viral. Never had a positive culture. Current Visit: Yes (2) Debility Status: Acute Assessment and plan: Due to widespread metastatic disease and inactivity 01/03/2017 increase activity when oxygen requirements decreased 01/07/2017 O2 sat acceptable on room air. Can increase activities. Current Visit: Yes (3) Severe protein-calorie malnutrition Status: Acute Assessment and plan: Low serum albumin. This aggravates pulmonary edema. 01/02/2017 continuing nutritional support. 01/03/2017 continuing nutritional support 01/07/2017 eating a little better now. Current Visit: Yes (4) Intractable pain Status: Acute Assessment and plan: Managed by Dr. Silva. Due to multiple bony metastasis 01/03/2017 getting an infusion of Dilaudid. 01/07/2017 pain is much better. He does have bony metastases. Current Visit: Yes (5) Lung cancer Status: Acute Assessment and plan: Stage IV squamous cell lung cancer. I do note the patient is a DO NOT RESUSCITATE. 01/01/2017 rapid progression of lymphangitic spread is a possibility as well although it seems to be too rapid and involving most of both lungs which would be unusual. 01/02/2017 do not think this is lymphangitic spread as well as come up too quickly. However cannot rule it out. 01/03/2017 prognosis is poor. 01-07-17 Dr. Silva is addressing additional treatment. Current Visit: Yes
[2017-01-07 08:47] LABS: Microcytosis Slight
[2017-01-07 08:48] LABS: Albumin 2.2 G/DL (3.4-5.0); Bilirubin,Total 1.2 MG/DL (0.2-1.0); Osmolality,Calculated 265.7 MOS/KG (273-304); Potassium 4.6 MMOL/L (3.5-5.1); Total Protein 5.9 G/DL (6.4-8.3)
--- NOTE | 2017-01-07 08:53 | XRay Report ---
Exam: XR chest 1V portable Date: 01/07/2017 7:39 AM Indication: Bilateral interstitial infiltrates history of lung cancer Comparison: 01/02/2017 Technical:AP Findings: Multiple nodular density present in the right chest and are pleural-based. There is a mass measuring approximately 2.8 cm and a second mass measures approximately 4.2 cm. Some interstitial alveolar infiltrate changes are present in the left midlung zone with prominent right pulmonary hilus. No pneumothorax. No obvious effusion. Heart is normal in size. Impression: 1. Persistent mass densities along the right chest measuring up to 4.2 cm 2. Improved aeration in the right upper lobe with persistent area of interstitial infiltrate or densities in the left upper perihilar region and right infrahilar region. PROCEDURE INTERPRETED AT [facility] DEPARTMENT OF RADIOLOGY Final Report Signed by: Dr. Danie Presley
[2017-01-07] MEDS: LEVOFLOXACIN 500 MG TABLET PO SCH (09:11)
[2017-01-07] MEDS: FUROSEMIDE 20 MG TABLET PO SCH (09:11)
[2017-01-07] MEDS: tiZANidine 4 MG TABLET PO SCH ×3 (09:11→21:20)
[2017-01-07] MEDS: predniSONE 20 MG TABLET PO SCH (09:11)
[2017-01-07] MEDS: FOLIC ACID 1 MG TABLET PO SCH (09:11)
[2017-01-07] MEDS: LACTULOSE 20 GM/30 ML UDCUP PO PRN (09:34)
[2017-01-07] MEDS: POLYETHYLENE GLYCOL POWDER 17 GM PACK PO SCH (10:19)
[2017-01-07] MEDS: methylPREDNISolone SOD SUC 40 MG/1 ML VIAL IV SCH ×2 (11:05)
[2017-01-07] MEDS: LEVOFLOXACIN INJ 500 MG in PREMIX 1 EACH IV SCH (11:05)
[2017-01-07] MEDS: BACITRACIN OINT 28.35 GM TUBE TOP SCH (13:51)
[2017-01-07] MEDS: DICLOFENAC 1.3% PATCH 5/PACK TRANSDERM SCH ×2 (15:26→21:30)
[2017-01-07] MEDS: AMITRIPTYLINE 25 MG TABLET PO SCH (21:20)
[2017-01-07] MEDS: GRANISETRON 1 MG/1 ML VIAL IV SCH (21:21)
[2017-01-07] MEDS: ONDANSETRON 4 MG/2 ML VIAL IV PRN (21:25)
[2017-01-08] MEDS: ALBUTEROL/IPRATROPIUM 3 ML NEB RESP TX SCH ×4 (00:15→19:08)
[2017-01-08 06:41] LABS: Basophils % 0.2 % (0.0-0.8); Eosinophils # 0.1 10*3/uL (0.0-0.87); Eosinophils % 0.5 % (0.00-10.9); Hematocrit 29.6 VOL% (42.0-52.0); Immature Granulocytes % 1.9 %; Immature Granulocytes Absolute 0.19 #; Lymphocytes % 10.4 % (21.2-54.2); Mean Corpuscular HGB Conc 33.8 GM/DL (32-36); Mean Corpuscular Hemoglobin 29 PG (27-34); Mean Corpuscular Volume 87.1 FL (87-102); Monocytes # 1.3 10*3/uL (0.11-0.8); Monocytes % 13.1 % (1.7-12.7); Neutrophils # 7.3 10*3/uL (1.4-7.4); Neutrophils % 73.9 % (38.7-73.9); Red Cell Distribution Width 15.2 % (9.3-17.3); White Blood Count 9.9 T/CUMM (4-12)
[2017-01-08 06:49] LABS: Platelet Count 12 T/CUMM (130-400)
[2017-01-08 07:10] LABS: Albumin 1.9 G/DL (3.4-5.0); Bilirubin,Total 2.3 MG/DL (0.2-1.0); Calcium 7.5 MG/DL (8.5-10.1); Osmolality,Calculated 260.7 MOS/KG (273-304); Potassium 4.1 MMOL/L (3.5-5.1); Total Protein 4.9 G/DL (6.4-8.3)
--- NOTE | 2017-01-08 07:37 | Pulmonology Progress Note ---
Pulmonary - PN: Subj Interval history: This 51-year-old man has widespread metastatic squamous cell cancer including chest wall involvement left shoulder involvement rib cage involvement. He has had radiation to his chest and left shoulder which was completed about 2 months ago. He now has diffuse infiltrates which have come up rather quickly. I reviewed his medications and neither the Alimta nor the carboplatin have any significant pulmonary toxicity or cardiac toxicity. We may be seeing some radiation pneumonitis. Superimposed pneumonia is a possibility. Noncardiac pulmonary edema also a possibility. Will treat with steroids and empiric antibiotics. Try to reduce oxygen as high oxygen levels can make radiation pneumonitis worse 01/02/2017 patient was seen on this date and note dictated but apparently it did not make the chart. He is coughing up some phlegm. I do think most likely were dealing with interstitial pneumonia. Continue with antibiotics and steroids. Radiation pneumonitis would not give this broad of picture. If it were to be lymphangitic spread it has certainly gone quickly. 01/03/2017 patient now tolerating 50% Ventimask. Oxygen saturation better. Lungs sound a little better. Continue empiric antibiotics and steroids. 01/07/2017 patient's O2 sat now in the mid 90s on room air. Chest x-ray this morning shows definite improvement in the interstitial pneumonia. Still has some abnormalities at the left base and has the peripheral nodular changes in the right lung. Overall improved. Will change prednisone and Levaquin to oral medications. Stop IV Lasix. His BNP was normal to begin with. This was an acute interstitial pneumonitis that was likely infectious. Cultures have all been negative. Presumably was bacterial, versus viral. 01/08/2017 patient is afebrile and room air oxygen saturations acceptable. Still has some interstitial infiltrate on the left side. The right lung was definitely improved. Certainly has peripheral nodules consistent with his known cancer on the right side as well. From pulmonary standpoint he could be discharged. Not sure what plans for follow-up will be as far as chemotherapy. Defer to Dr. Silva. Would keep on oral antibiotics probably 3 more days. No specific organism. Levaquin or Omnicef would be reasonable. Exam (Progress Note) - Constitutional Vitals: Period Temp Pulse Resp BP Sys/Kwok Pulse Ox Last 24 Hr 96.8 F-98.8 F 94-122 17-22 86-95/50-75 89-99 Exam: Patient's alert responsive sitting on the side of the bed wearing venti- mask. Pupils are reactive. Neck is supple. Chest reveals a few rales on the right. Heart normal rate and rhythm no murmurs. Bandage over his sternum. Abdomen soft nontender no masses. Extremities no clubbing or cyanosis he does not have edema. Results - Labs CBC & BMP: 01/08/17 06:07 01/08/17 06:07 Lab Results: I have reviewed the past 24 hour labs Assessment and Plan (1) Pulmonary edema Status: Acute Assessment and plan: May be ahead on fluids. He has been getting hydration and his renal function is normal. Will check BNP and get echocardiogram. Diuresed vigorously. Serum proteins are low which may aggravate this. Other less likely cause may be related to chemotherapy. This does not look like pneumonia. 01/01/2017 this appears to be noncardiac pulmonary edema. His BNP and echocardiogram were normal. This could be simply fluid overload but I think that is unlikely. Medications that he has had do not frequently cause non cardiac pulmonary edema. Radiation pneumonitis may be a factor although the infiltrates do not take on any kind of a square appearance. We will treat him for all of these including possible infection. Prognosis is poor. 01/02/2017 this does not appear to be cardiac pulmonary edema. Continuing antibiotics oxygen and steroids oxygen supplement. 01/03/2017 this does not appear to be cardiac edema. Continue with empiric antibiotic for infection. 01/07/2017 this is noncardiac. Likely was infectious. Bacterial versus viral. Never had a positive culture. 01/08/2017 this was noncardiac pulmonary edema and appears to be an acute interstitial pneumonia. It has improved with treatment. Still has some infiltrate at the left base. Needs another 3 days or so of antibiotics which could be given by mouth. Still having problems with low platelets. Current Visit: Yes (2) Debility Status: Acute Assessment and plan: Due to widespread metastatic disease and inactivity 01/03/2017 increase activity when oxygen requirements decreased 01/07/2017 O2 sat acceptable on room air. Can increase activities. Current Visit: Yes (3) Severe protein-calorie malnutrition Status: Acute Assessment and plan: Low serum albumin. This aggravates pulmonary edema. 01/02/2017 continuing nutritional support. 01/03/2017 continuing nutritional support 01/07/2017 eating a little better now. 01/08/2017 nutritional support continuing Current Visit: Yes (4) Intractable pain Status: Acute Assessment and plan: Managed by Dr. Silva. Due to multiple bony metastasis 01/03/2017 getting an infusion of Dilaudid. 01/07/2017 pain is much better. He does have bony metastases. 01/08/2017 pain meds seem to be working better. Current Visit: Yes (5) Lung cancer Status: Acute Assessment and plan: Stage IV squamous cell lung cancer. I do note the patient is a DO NOT RESUSCITATE. 01/01/2017 rapid progression of lymphangitic spread is a possibility as well although it seems to be too rapid and involving most of both lungs which would be unusual. 01/02/2017 do not think this is lymphangitic spread as well as come up too quickly. However cannot rule it out. 01/03/2017 prognosis is poor. 01-07-17 Dr. Silva is addressing additional treatment. 01/08/2017 advanced stage DNR supportive care but may be candidate for Keytruda Current Visit: Yes
[2017-01-08 07:51] LABS: Hypochromasia 1+; Microcytosis Slight; Ovalocytes Few; Platelet Estimate Decreased
[2017-01-08 07:52] LABS: Tear Drop Cells Slight
--- NOTE | 2017-01-08 08:02 | Oncology Progress Note ---
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 His pain is improving. 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 Angulo now has received Alimta 750 mg and carboplatin 120 mg given IV on December 30. His tumor is actually shrinking in several areas including the manubrium, the left supraclavicular area in the lower left back. I am really surprised with this considering the fact that this is third line chemotherapy and he has received so recently. The chest x-ray is improving as well. Emaciation and cachexia Serum albumin 1.9 today.. In addition, his alkaline phosphatase is falling and is 172 today. His LDH is normal today at 186. COPD His hypoxemia has improved. We are reducing his FiO2. Anemia, multifactorial including chronic disease mainly and partly due to chemotherapy and radiation Hemoglobin 10.0 today thrombocytopenia:His Platelets 12,000 today. Transfusion ordered. White cell count 9900 Physical examination: General: Chronically ill-appearing. Eyes: Normal lids and conjunctivae. ENT: Oral mucosa and pharynx are normal. Hearing is normal. Neck: Trachea is midline. The left supraclavicular mass is decreasing. Lungs: Extremely coarse breath sounds throughout with decreased breath sounds but I hear no rubs, rales or rhonchi. Cardiovascular: Heart rhythm regular without murmur, gallop or rub and there is no jugular venous distention or cyanosis. Musculoskeletal: Metastatic disease to the manubrium, left supraclavicular fossa and lower left posterior thorax are all decreasing. Neurologic: Cranial nerves II through XII are intact. Psychiatric: He is oriented to time, place, person and situation. Exam - Constitutional Vitals: Period Temp Pulse Resp BP Sys/Kwok Pulse Ox Last 24 Hr 96.8 F-98.8 F 94-129 18-22 86-95/50-75 90-99 Results - Labs CBC & BMP: 01/08/17 06:07 01/08/17 06:07
[2017-01-08] MEDS: LEVOFLOXACIN 500 MG TABLET PO SCH (08:47)
[2017-01-08] MEDS: BACITRACIN OINT 28.35 GM TUBE TOP SCH (08:47)
[2017-01-08] MEDS: FOLIC ACID 1 MG TABLET PO SCH (08:47)
[2017-01-08] MEDS: predniSONE 20 MG TABLET PO SCH (08:47)
[2017-01-08] MEDS: tiZANidine 4 MG TABLET PO SCH ×3 (08:48→21:48)
[2017-01-08] MEDS: POLYETHYLENE GLYCOL POWDER 17 GM PACK PO SCH (08:48)
[2017-01-08] MEDS: DICLOFENAC 1.3% PATCH 5/PACK TRANSDERM SCH ×2 (08:48→21:49)
[2017-01-08] MEDS: FUROSEMIDE 20 MG TABLET PO SCH (08:48)
[2017-01-08] MEDS: LACTULOSE 20 GM/30 ML UDCUP PO PRN (08:50)
[2017-01-08] MEDS: HYDROmorphone 2 MG TABLET PO PRN ×2 (08:52→22:01)
[2017-01-08] MEDS: AMITRIPTYLINE 25 MG TABLET PO SCH (21:48)
[2017-01-08] MEDS: GRANISETRON 1 MG/1 ML VIAL IV SCH (21:49)
[2017-01-08] MEDS: ONDANSETRON 4 MG/2 ML VIAL IV PRN (22:01)
[2017-01-09] MEDS: ALBUTEROL/IPRATROPIUM 3 ML NEB RESP TX SCH ×4 (01:09→21:15)
[2017-01-09] MEDS: HYDROmorphone 2 MG TABLET PO PRN ×3 (05:17→20:15)
[2017-01-09] MEDS: ONDANSETRON 4 MG/2 ML VIAL IV PRN ×2 (05:18→20:16)
[2017-01-09 05:46] LABS: Basophils % 0.1 % (0.0-0.8); Eosinophils # 0.1 10*3/uL (0.0-0.87); Eosinophils % 0.8 % (0.00-10.9); Hematocrit 26.9 VOL% (42.0-52.0); Hemoglobin 8.9 GM/DL (14.0-18.0); Immature Granulocytes % 1.7 %; Immature Granulocytes Absolute 0.12 #; Lymphocytes # 1.1 10*3/uL (1.4-4.0); Mean Corpuscular HGB Conc 33.1 GM/DL (32-36); Mean Corpuscular Hemoglobin 30 PG (27-34); Mean Platelet Volume 11.3 FL (9.6-12.0); Monocytes # 1.2 10*3/uL (0.11-0.8); Monocytes % 16.5 % (1.7-12.7); Neutrophils # 4.7 10*3/uL (1.4-7.4); Neutrophils % 65.9 % (38.7-73.9); Red Blood Count 2.99 MC/CUMM (3.8-5.5); Red Cell Distribution Width 15.5 % (9.3-17.3); White Blood Count 7.1 T/CUMM (4-12)
[2017-01-09 05:58] LABS: Platelet Count 26 T/CUMM (130-400)
[2017-01-09 06:11] LABS: Eosinophils 1 % (0-10); Hypochromasia 1+; Lymphocytes 15 % (20-55); Microcytosis 1+; Ovalocytes Few; Segmented Neutrophils 74 % (50-85); Total Cells Counted 100
[2017-01-09 06:12] LABS: Platelet Estimate Decreased; Tear Drop Cells Slight
[2017-01-09 06:23] LABS: Albumin 1.9 G/DL (3.4-5.0); Bilirubin,Total 1.7 MG/DL (0.2-1.0); Osmolality,Calculated 266.2 MOS/KG (273-304); Potassium 3.3 MMOL/L (3.5-5.1); Total Protein 4.8 G/DL (6.4-8.3)
--- NOTE | 2017-01-09 07:34 | Oncology Progress Note ---
Oncology Subjective PN Interval history: Mr. Angulo remains hospitalized for management of stage IV squamous cell lung cancer and its complications. They are as follows: Severe intractable pain secondary to metastatic stage IV squamous cell lung carcinoma although he is on parenteral fentanyl, I am discontinuing the parenteral Dilaudid 9 placing him back on oral Dilaudid. His pain is improving. 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 Angulo now has received Alimta 750 mg and carboplatin 120 mg given IV on December 30. His tumor is actually shrinking in several areas including the manubrium, the left supraclavicular area in the lower left back. I am really surprised with this considering the fact that this is third line chemotherapy and he has received so recently. The chest x-ray is improving as well. I am going to recheck it today. Emaciation and cachexia Serum albumin 1.9 today.. In addition, his alkaline phosphatase is falling and is 165 today. His LDH is normal today at 186. COPD His hypoxemia has improved. We are reducing his FiO2. Anemia, multifactorial including chronic disease mainly and partly due to chemotherapy and radiation Hemoglobin 9.8 today thrombocytopenia:His Platelets 26,000 after transfusion. Hypokalemia: Potassium 3.3. Oral potassium supplementation with K-Dur 20 mEq p.o. twice daily has been ordered. Monitoring side effects of chemotherapy: Blood work today includes a white cell count of 7100 Physical examination: General: He is emaciated and cachectic and chronically ill-appearing Eyes: Normal lids and conjunctivae. ENT: His oral mucosa and pharynx are normal. His trachea is midline. Lungs: Breath sounds are coarse throughout without rubs, rales or rhonchi. There is symmetrical unlabored chest motion with respiration. Cardiovascular: His heart rhythm is regular without murmur, gallop or rub. There is no jugular venous distention, clubbing, cyanosis or edema. Musculoskeletal: He has generalized muscle wasting and is emaciated and cachectic. The metastatic disease to the manubrium continues to shrink. In addition there is a mass-effect in the lower left posterior chest but continues to shrink. Neurologic: Cranial nerves II through XII are intact. The no focal neurologic deficits. Nodes: The left supraclavicular adenopathy continues to decrease in size. He is tender over that area. Exam - Constitutional Vitals: Period Temp Pulse Resp BP Sys/Kwok Pulse Ox Last 24 Hr 97.1 F-98.5 F 85-129 12-20 75-94/45-64 89-99 Results - Labs CBC & BMP: 01/09/17 04:50 01/09/17 04:50
--- NOTE | 2017-01-09 08:40 | Pulmonology Progress Note ---
Pulmonary - PN: Subj Interval history: This 51-year-old man has widespread metastatic squamous cell cancer including chest wall involvement left shoulder involvement rib cage involvement. He has had radiation to his chest and left shoulder which was completed about 2 months ago. He now has diffuse infiltrates which have come up rather quickly. I reviewed his medications and neither the Alimta nor the carboplatin have any significant pulmonary toxicity or cardiac toxicity. We may be seeing some radiation pneumonitis. Superimposed pneumonia is a possibility. Noncardiac pulmonary edema also a possibility. Will treat with steroids and empiric antibiotics. Try to reduce oxygen as high oxygen levels can make radiation pneumonitis worse 01/02/2017 patient was seen on this date and note dictated but apparently it did not make the chart. He is coughing up some phlegm. I do think most likely were dealing with interstitial pneumonia. Continue with antibiotics and steroids. Radiation pneumonitis would not give this broad of picture. If it were to be lymphangitic spread it has certainly gone quickly. 01/03/2017 patient now tolerating 50% Ventimask. Oxygen saturation better. Lungs sound a little better. Continue empiric antibiotics and steroids. 01/07/2017 patient's O2 sat now in the mid 90s on room air. Chest x-ray this morning shows definite improvement in the interstitial pneumonia. Still has some abnormalities at the left base and has the peripheral nodular changes in the right lung. Overall improved. Will change prednisone and Levaquin to oral medications. Stop IV Lasix. His BNP was normal to begin with. This was an acute interstitial pneumonitis that was likely infectious. Cultures have all been negative. Presumably was bacterial, versus viral. 01/08/2017 patient is afebrile and room air oxygen saturations acceptable. Still has some interstitial infiltrate on the left side. The right lung was definitely improved. Certainly has peripheral nodules consistent with his known cancer on the right side as well. From pulmonary standpoint he could be discharged. Not sure what plans for follow-up will be as far as chemotherapy. Defer to Dr. Silva. Would keep on oral antibiotics probably 3 more days. No specific organism. Levaquin or Omnicef would be reasonable. 01/09/2017 patient's oxygen saturations in mid 90s on room air. Platelet count up to 26,000 post transfusion. Defer to Dr. Silva on follow-up of that. From pulmonary standpoint he is improved. Would agree with discharge tomorrow if all is stable. He was on Lasix 20 mg prior to admission. His BNP was not elevated when he had the interstitial infiltrates. I do not think there was any congestive heart failure involved. This was acute interstitial pneumonitis bacterial versus viral. Exam (Progress Note) - Constitutional Vitals: Period Temp Pulse Resp BP Sys/Kwok Pulse Ox Last 24 Hr 97.1 F-98.5 F 85-110 12-20 75-93/45-55 89-99 Exam: Patient's alert responsive sitting on the side of the bed wearing venti- mask. Pupils are reactive. Neck is supple. Chest reveals a few rales on the right. Heart normal rate and rhythm no murmurs. Bandage over his sternum. Abdomen soft nontender no masses. Extremities no clubbing or cyanosis he does not have edema. Results - Labs CBC & BMP: 01/09/17 04:50 01/09/17 04:50 Lab Results: I have reviewed the past 24 hour labs Assessment and Plan (1) Pulmonary edema Status: Acute Assessment and plan: May be ahead on fluids. He has been getting hydration and his renal function is normal. Will check BNP and get echocardiogram. Diuresed vigorously. Serum proteins are low which may aggravate this. Other less likely cause may be related to chemotherapy. This does not look like pneumonia. 01/01/2017 this appears to be noncardiac pulmonary edema. His BNP and echocardiogram were normal. This could be simply fluid overload but I think that is unlikely. Medications that he has had do not frequently cause non cardiac pulmonary edema. Radiation pneumonitis may be a factor although the infiltrates do not take on any kind of a square appearance. We will treat him for all of these including possible infection. Prognosis is poor. 01/02/2017 this does not appear to be cardiac pulmonary edema. Continuing antibiotics oxygen and steroids oxygen supplement. 01/03/2017 this does not appear to be cardiac edema. Continue with empiric antibiotic for infection. 01/07/2017 this is noncardiac. Likely was infectious. Bacterial versus viral. Never had a positive culture. 01/08/2017 this was noncardiac pulmonary edema and appears to be an acute interstitial pneumonia. It has improved with treatment. Still has some infiltrate at the left base. Needs another 3 days or so of antibiotics which could be given by mouth. Still having problems with low platelets. 01/09/2017 acute interstitial pneumonitis improved. Noncardiac Current Visit: Yes (2) Debility Status: Acute Assessment and plan: Due to widespread metastatic disease and inactivity 01/03/2017 increase activity when oxygen requirements decreased 01/07/2017 O2 sat acceptable on room air. Can increase activities. 01/09/2017 patient starting to get up and about more. Current Visit: Yes (3) Severe protein-calorie malnutrition Status: Acute Assessment and plan: Low serum albumin. This aggravates pulmonary edema. 01/02/2017 continuing nutritional support. 01/03/2017 continuing nutritional support 01/07/2017 eating a little better now. 01/08/2017 nutritional support continuing 01/09/2017 again seems to be eating better. Current Visit: Yes (4) Intractable pain Status: Acute Assessment and plan: Managed by Dr. Silva. Due to multiple bony metastasis 01/03/2017 getting an infusion of Dilaudid. 01/07/2017 pain is much better. He does have bony metastases. 01/08/2017 pain meds seem to be working better. 01/09/2017 this is improved. Current Visit: Yes (5) Lung cancer Status: Acute Assessment and plan: Stage IV squamous cell lung cancer. I do note the patient is a DO NOT RESUSCITATE. 01/01/2017 rapid progression of lymphangitic spread is a possibility as well although it seems to be too rapid and involving most of both lungs which would be unusual. 01/02/2017 do not think this is lymphangitic spread as well as come up too quickly. However cannot rule it out. 01/03/2017 prognosis is poor. 01-07-17 Dr. Silva is addressing additional treatment. 01/08/2017 advanced stage DNR supportive care but may be candidate for Keytruda Current Visit: Yes
[2017-01-09] MEDS: LEVOFLOXACIN 500 MG TABLET PO SCH (09:05)
[2017-01-09] MEDS: POTASSIUM CHLORIDE 20 MEQ TABLET PO SCH ×2 (09:06→20:14)
[2017-01-09] MEDS: FOLIC ACID 1 MG TABLET PO SCH (09:06)
[2017-01-09] MEDS: fentaNYL 100 MCG/HR PATCH TRANSDERM SCH ×2 (09:06→09:13)
[2017-01-09] MEDS: tiZANidine 4 MG TABLET PO SCH ×3 (09:06→20:15)
[2017-01-09] MEDS: FUROSEMIDE 20 MG TABLET PO SCH (09:06)
[2017-01-09] MEDS: predniSONE 20 MG TABLET PO SCH (09:06)
[2017-01-09] MEDS: DICLOFENAC 1.3% PATCH 5/PACK TRANSDERM SCH ×2 (09:08→22:29)
[2017-01-09] MEDS: POLYETHYLENE GLYCOL POWDER 17 GM PACK PO SCH (09:13)
[2017-01-09] MEDS: BACITRACIN OINT 28.35 GM TUBE TOP SCH (09:14)
--- NOTE | 2017-01-09 13:39 | XRay Report ---
Portable chest Exam date: 01/09/2017 8:11 AM Indication: Shortness of breath, cough Comparison: January 07, 2017 and 0822 hours Findings: Cardiomediastinal contours are stable. No change in the large right subpleural mass lesions. Minimal improvement in the hazy groundglass consolidations left upper and right lower lobes. No acute osseous abnormalities. Visualized upper abdomen demonstrates no acute pathology. Impression: 1. No change in the right subpleural mass lesions 2. Slight improvement in the groundglass consolidation left upper and right lower lobes PROCEDURE INTERPRETED AT [facility] DEPARTMENT OF RADIOLOGY Final Report Signed by: Obie Valentino
[2017-01-09] MEDS: AMITRIPTYLINE 25 MG TABLET PO SCH (20:14)
[2017-01-09] MEDS: GRANISETRON 1 MG/1 ML VIAL IV SCH (20:16)
[2017-01-10] MEDS: ALBUTEROL/IPRATROPIUM 3 ML NEB RESP TX SCH ×2 (00:48→07:00)
[2017-01-10] MEDS: HYDROmorphone 2 MG TABLET PO PRN ×2 (04:29→10:03)
[2017-01-10 06:45] LABS: Basophils % 0.1 % (0.0-0.8); Eosinophils % 0.3 % (0.00-10.9); Hematocrit 24.4 VOL% (42.0-52.0); Hemoglobin 8.4 GM/DL (14.0-18.0); Immature Granulocytes % 0.6 %; Immature Granulocytes Absolute 0.05 #; Lymphocytes # 1.2 10*3/uL (1.4-4.0); Mean Corpuscular HGB Conc 34.4 GM/DL (32-36); Mean Corpuscular Hemoglobin 30 PG (27-34); Mean Corpuscular Volume 87.1 FL (87-102); Mean Platelet Volume 13.1 FL (9.6-12.0); Monocytes # 1.4 10*3/uL (0.11-0.8); Monocytes % 15.5 % (1.7-12.7); Neutrophils % 69.5 % (38.7-73.9); Red Cell Distribution Width 15.5 % (9.3-17.3); White Blood Count 8.7 T/CUMM (4-12)
[2017-01-10 07:02] LABS: Platelet Count 23 T/CUMM (130-400)
[2017-01-10 07:14] LABS: Giant Platelets Few; Hypochromasia 1+; Lymphocytes 15 % (20-55); Microcytosis 1+; Ovalocytes Slight; Platelet Estimate Decreased; Segmented Neutrophils 74 % (50-85); Total Cells Counted 100
--- NOTE | 2017-01-10 07:17 | Pulmonology Progress Note ---
Pulmonary - PN: Subj Interval history: This 51-year-old man has widespread metastatic squamous cell cancer including chest wall involvement left shoulder involvement rib cage involvement. He has had radiation to his chest and left shoulder which was completed about 2 months ago. He now has diffuse infiltrates which have come up rather quickly. I reviewed his medications and neither the Alimta nor the carboplatin have any significant pulmonary toxicity or cardiac toxicity. We may be seeing some radiation pneumonitis. Superimposed pneumonia is a possibility. Noncardiac pulmonary edema also a possibility. Will treat with steroids and empiric antibiotics. Try to reduce oxygen as high oxygen levels can make radiation pneumonitis worse 01/02/2017 patient was seen on this date and note dictated but apparently it did not make the chart. He is coughing up some phlegm. I do think most likely were dealing with interstitial pneumonia. Continue with antibiotics and steroids. Radiation pneumonitis would not give this broad of picture. If it were to be lymphangitic spread it has certainly gone quickly. 01/03/2017 patient now tolerating 50% Ventimask. Oxygen saturation better. Lungs sound a little better. Continue empiric antibiotics and steroids. 01/07/2017 patient's O2 sat now in the mid 90s on room air. Chest x-ray this morning shows definite improvement in the interstitial pneumonia. Still has some abnormalities at the left base and has the peripheral nodular changes in the right lung. Overall improved. Will change prednisone and Levaquin to oral medications. Stop IV Lasix. His BNP was normal to begin with. This was an acute interstitial pneumonitis that was likely infectious. Cultures have all been negative. Presumably was bacterial, versus viral. 01/08/2017 patient is afebrile and room air oxygen saturations acceptable. Still has some interstitial infiltrate on the left side. The right lung was definitely improved. Certainly has peripheral nodules consistent with his known cancer on the right side as well. From pulmonary standpoint he could be discharged. Not sure what plans for follow-up will be as far as chemotherapy. Defer to Dr. Silva. Would keep on oral antibiotics probably 3 more days. No specific organism. Levaquin or Omnicef would be reasonable. 01/09/2017 patient's oxygen saturations in mid 90s on room air. Platelet count up to 26,000 post transfusion. Defer to Dr. Silva on follow-up of that. From pulmonary standpoint he is improved. Would agree with discharge tomorrow if all is stable. He was on Lasix 20 mg prior to admission. His BNP was not elevated when he had the interstitial infiltrates. I do not think there was any congestive heart failure involved. This was acute interstitial pneumonitis bacterial versus viral. 01/10/2017 O2 sats remained acceptable on room air. Yesterday's chest x-ray does look a little better still. Right-sided lung cancers about the same. Interstitial pneumonitis improved but not totally clear as yet. Platelet count is only 26,000. Defer to Dr. Silva as far as following that up. I will be away this weekend. 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 Exam (Progress Note) - Constitutional Vitals: Period Temp Pulse Resp BP Sys/Kwok Pulse Ox Last 24 Hr 96.8 F-98.9 F 88-116 12-20 72-94/45-55 90-100 Exam: Patient's alert responsive sitting on the side of the bed on room air. Pupils are reactive. Neck is supple. Chest reveals a few rales on the right. Heart normal rate and rhythm no murmurs. Bandage over his sternum. Abdomen soft nontender no masses. Extremities no clubbing or cyanosis he does not have edema. Results - Labs CBC & BMP: 01/10/17 04:29 01/09/17 04:50 Lab Results: I have reviewed the past 24 hour labs - Diagnostic Findings Procedure: Chest x-ray: image reviewed by me (Bilateral interstitial infiltrates or about 75% cleared. Right lung subpleural masses and hilar mass about the same) Assessment and Plan (1) Pulmonary edema Status: Acute Assessment and plan: May be ahead on fluids. He has been getting hydration and his renal function is normal. Will check BNP and get echocardiogram. Diuresed vigorously. Serum proteins are low which may aggravate this. Other less likely cause may be related to chemotherapy. This does not look like pneumonia. 01/01/2017 this appears to be noncardiac pulmonary edema. His BNP and echocardiogram were normal. This could be simply fluid overload but I think that is unlikely. Medications that he has had do not frequently cause non cardiac pulmonary edema. Radiation pneumonitis may be a factor although the infiltrates do not take on any kind of a square appearance. We will treat him for all of these including possible infection. Prognosis is poor. 01/02/2017 this does not appear to be cardiac pulmonary edema. Continuing antibiotics oxygen and steroids oxygen supplement. 01/03/2017 this does not appear to be cardiac edema. Continue with empiric antibiotic for infection. 01/07/2017 this is noncardiac. Likely was infectious. Bacterial versus viral. Never had a positive culture. 01/08/2017 this was noncardiac pulmonary edema and appears to be an acute interstitial pneumonia. It has improved with treatment. Still has some infiltrate at the left base. Needs another 3 days or so of antibiotics which could be given by mouth. Still having problems with low platelets. 01/09/2017 acute interstitial pneumonitis improved. Noncardiac 01/10/2017 noncardiac pulmonary edema probably due to interstitial pneumonitis. This is improving. Gas exchange much improved as well Current Visit: Yes (2) Debility Status: Acute Assessment and plan: Due to widespread metastatic disease and inactivity 01/03/2017 increase activity when oxygen requirements decreased 01/07/2017 O2 sat acceptable on room air. Can increase activities. 01/09/2017 patient starting to get up and about more. 01/10/2017 patient is starting to get more active. Current Visit: Yes (3) Severe protein-calorie malnutrition Status: Acute Assessment and plan: Low serum albumin. This aggravates pulmonary edema. 01/02/2017 continuing nutritional support. 01/03/2017 continuing nutritional support 01/07/2017 eating a little better now. 01/08/2017 nutritional support continuing 01/09/2017 again seems to be eating better. 01/10/2017 seems to be eating fairly well now. Current Visit: Yes (4) Intractable pain Status: Acute Assessment and plan: Managed by Dr. Silva. Due to multiple bony metastasis 01/03/2017 getting an infusion of Dilaudid. 01/07/2017 pain is much better. He does have bony metastases. 01/08/2017 pain meds seem to be working better. 01/09/2017 this is improved. 01/10/[address] Silva. Pain is improved. Current Visit: Yes (5) Lung cancer Status: Acute Assessment and plan: Stage IV squamous cell lung cancer. I do note the patient is a DO NOT RESUSCITATE. 01/01/2017 rapid progression of lymphangitic spread is a possibility as well although it seems to be too rapid and involving most of both lungs which would be unusual. 01/02/2017 do not think this is lymphangitic spread as well as come up too quickly. However cannot rule it out. 01/03/2017 prognosis is poor. 01-07-17 Dr. Silva is addressing additional treatment. 01/08/2017 advanced stage DNR supportive care but may be candidate for Keytruda Current Visit: Yes
[2017-01-10 07:21] LABS: Albumin 1.6 G/DL (3.4-5.0); Bilirubin,Total 0.7 MG/DL (0.2-1.0); Calcium 6.9 MG/DL (8.5-10.1); Osmolality,Calculated 261.7 MOS/KG (273-304); Total Protein 4.5 G/DL (6.4-8.3)
--- NOTE | 2017-01-10 08:01 | Oncology Progress Note ---
Oncology Subjective PN Interval history: Diagnoses: The primary reason for admitting this patient was progression of his lung cancer that resulted in severe intractable pain. 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 His pain may be improving soon because he has multiple areas of bony metastases and chest wall metastases that are actually shrinking. 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 Angulo now has received Alimta 750 mg and carboplatin 120 mg given IV on December 30. His tumor is actually shrinking in several areas including the manubrium, the left supraclavicular area in the lower left back. I am really surprised with this considering the fact that this is third line chemotherapy and he has received so recently. This combination of chemotherapy is usually repeated every 3 weeks and Keytruda may be added to it. It is normally given for 4 courses and then Keytruda is used along with her after if the response is good. The chest x-ray is improving, although there is still evidence of extensive metastatic disease within the lung [place], especially on the right side and also evidence of bony metastases and on physical examination his tumor is shrinking as mentioned already. Emaciation and cachexia Serum albumin 1.6 today.. In addition, his alkaline phosphatase is falling and is 136 today down from a high of 412 on January 01, 2017. COPD His hypoxemia has improved. We are reducing his FiO2. Anemia, multifactorial including chronic disease mainly and partly due to chemotherapy and radiation Hemoglobin 8.4 today thrombocytopenia:His Platelets 23,000 Hypokalemia: Potassium 4.0. Oral potassium supplementation with K-Dur 20 mEq p.o. will be added to discharge medicines Monitoring side effects of chemotherapy: Blood work today includes a white cell count of 8700. Serum creatinine 0.2 The patient is given 2 new prescriptions for pain medications. One is Dilaudid 4 mg tablets with 100 tablets dispensed to take 1 every 4 hours as needed for pain. No refills. The other is fentanyl 100 mcg patches and he is given a prescription for 20 patches because he is to apply 2 patches every 72 hours as needed for pain. He has also been given a new prescription for K-Dur 20 mEq with 30 tablets and 5 refills to take 1 daily. Exam - Constitutional Vitals: Period Temp Pulse Resp BP Sys/Kwok Pulse Ox Last 24 Hr 96.8 F-98.2 F 88-116 12-20 72-94/45-55 90-100 Results - Labs CBC & BMP: 01/10/17 04:29 01/10/17 04:29 Specialty Discharge - Follow Up or Referrals Follow up with: Jeffrey Silva MD [Physician] -
[2017-01-10] MEDS: FUROSEMIDE 20 MG TABLET PO SCH (08:39)
[2017-01-10] MEDS: predniSONE 20 MG TABLET PO SCH (08:39)
[2017-01-10] MEDS: POTASSIUM CHLORIDE 20 MEQ TABLET PO SCH (08:39)
[2017-01-10] MEDS: POLYETHYLENE GLYCOL POWDER 17 GM PACK PO SCH (08:40)
[2017-01-10] MEDS: tiZANidine 4 MG TABLET PO SCH (08:40)
[2017-01-10] MEDS: FOLIC ACID 1 MG TABLET PO SCH (08:40)
[2017-01-10] MEDS: BACITRACIN OINT 28.35 GM TUBE TOP SCH (08:41)
--- NOTE | 2017-01-10 09:11 | Discharge Summary ---
Hospital Course - Hospital Course Hospital Course: The primary reason for admitting this patient was progression of his lung cancer that resulted in severe intractable pain. 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 His pain may be improving soon because he has multiple areas of bony metastases and chest wall metastases that are actually shrinking. 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 Angulo now has received Alimta 750 mg and carboplatin 120 mg given IV on December 30. His tumor is actually shrinking in several areas including the manubrium, the left supraclavicular area in the lower left back. I am really surprised with this considering the fact that this is third line chemotherapy and he has received so recently. This combination of chemotherapy is usually repeated every 3 weeks and Keytruda may be added to it. It is normally given for 4 courses and then Keytruda is used along with her after if the response is good. The chest x-ray is improving, although there is still evidence of extensive metastatic disease within the lung [place], especially on the right side and also evidence of bony metastases and on physical examination his tumor is shrinking as mentioned already. Emaciation and cachexia Serum albumin 1.6 today.. In addition, his alkaline phosphatase is falling and is 136 today down from a high of 412 on January 01, 2017. COPD His hypoxemia has improved. We are reducing his FiO2. Anemia, multifactorial including chronic disease mainly and partly due to chemotherapy and radiation Hemoglobin 8.4 today thrombocytopenia:His Platelets 23,000 Hypokalemia: Potassium 4.0. Oral potassium supplementation with K-Dur 20 mEq p.o. will be added to discharge medicines Monitoring side effects of chemotherapy: Blood work today includes a white cell count of 8700. Serum creatinine 0.2 The patient is given 2 new prescriptions for pain medications. One is Dilaudid 4 mg tablets with 100 tablets dispensed to take 1 every 4 hours as needed for pain. No refills. The other is fentanyl 100 mcg patches and he is given a prescription for 20 patches because he is to apply 2 patches every 72 hours as needed for pain. He has also been given a new prescription for K-Dur 20 mEq with 30 tablets and 5 refills to take 1 daily. - Time spent with patient Time with patient DS: Greater than 30 minutes Specialty Discharge - Follow Up or Referrals Follow up with: Jeffrey Silva MD [Physician] - Discharge Plan - Discharge Data Disposition: Disch To Home/Self Care Condition at Discharge: Guarded Discharge Diet: advance to your usual diet Activity: resume usual activities as tolerated Hygiene: no restrictions Weight Bearing at Discharge: weight bear as tolerated Driving: other Contact your physician if you experience:: fever over 101, Difficulty voiding, Redness or swelling, Nausea/Vomiting, Shortness of breath, Bleeding, pain uncontrolled by pain medications - Discharge Medications New fentaNYL 100 MCG/HR PATCH [Duragesic 100 Patch] 2 patch TRANSDERM Q3DAY #20 patch Potassium Chloride Cap/Tab [K Dur] 20 meq PO DAILY #30 tablet HYDROmorphone TAB [Dilaudid Tab] 4 mg PO Q4H #100 tablet Continue Folic Acid Tab 1 mg PO DAILY Amitriptyline [Elavil] 25 mg PO BEDTIME Indomethacin Cap [Indocin Cap] 25 mg PO TID tiZANidine [Zanaflex] 4 mg PO TID Ondansetron Tab [Zofran Tab] 4 mg PO Q6H PRN PRN Reason: Nausea Furosemide Tab [Lasix Tab] 20 mg PO DAILY Discontinued fentaNYL 25 MCG/HR PATCH [Duragesic 25 Patch] 50 patch TRANSDERM Q3DAY Oxycodone HCl 30 mg PO QID PRN PRN Reason: Pain fentaNYL [Fentanyl 50 mcg/hr Patch] 100 mcg TRANSDERM Q3DAY - Follow Up or Referral Follow Up: Jeffrey Silva MD [Physician] - - Forms/Instructions Additional Discharge Instructions: Discharge today with an appointment to see me in 2 weeks with CBC, CMP and LDH and chest x-ray. Lab work at my office in 1 week to include a CBC and CMP. Exam - Constitutional Vitals: Period Temp Pulse Resp BP Sys/Kwok Pulse Ox Last 24 Hr 96.8 F-98.2 F 88-109 12-20 72-94/45-55 90-100 Discharge Results Procedures and tests throughout hospitalization: Pending Orders 01/11/17 04:00 Comp Blood Count Auto Diff IN AM Comprehensive Metabolic Panel IN AM LDH [Lactate Dehydrogenase] IN AM 01/12/17 04:00 Comp Blood Count Auto Diff IN AM Comprehensive Metabolic Panel IN AM LDH [Lactate Dehydrogenase] IN AM 01/13/17 04:00 Comp Blood Count Auto Diff IN AM Comprehensive Metabolic Panel IN AM Labs on day of discharge: Labs from last 24 hours 01/10/17 01/10/17 04:29 04:29 WBC 8.7 RBC 2.80 L Hgb 8.4 L Hct 24.4 L MCV 87.1 MCH 30 MCHC 34.4 RDW 15.5 Plt Count 23 L* MPV 13.1 H Neut % (Auto) 69.5 Lymph % (Auto) 14.0 L [place] % (Auto) 15.5 H Eos % (Auto) 0.3 Baso % (Auto) 0.1 Neut # (Auto) 6.0 Lymph # (Auto) 1.2 L [place] # (Auto) 1.4 H Eos # (Auto) 0.0 Baso # (Auto) 0.0 Total Counted 100 Immature Gran % 0.6 Nucleated RBC % 0.0 Immature Gran # 0.05 Segmented Neutrophils 74 Lymphocytes 15 L Monocytes 11 Nucleated RBCs # 0.00 Platelet Estimate Decreased Giant Platelets Few Immature Plt Fraction 9.0 H Hypochromasia 1+ Microcytosis 1+ Ovalocytes Slight Morphology Comment Sodium 131 L Potassium 4.0 Chloride 97 L Carbon Dioxide 28 Anion Gap 10.0 BUN 9 Creatinine 0.20 L GFR Calculation 162 BUN/Creatinine Ratio 45.00 H Glucose 114 H Calculated Osmolality 261.7 L Calcium 6.9 L Total Bilirubin 0.70 AST 11 ALT 16 Alkaline Phosphatase 136 H Lactate Dehydrogenase 165 Total Protein 4.5 L Albumin 1.6 L Globulin 2.9 Albumin/Globulin Ratio 0.5 L DS: Provider Date of admission: 12/25/16 12:31 Primary care physician: Kelvin Whaley Attending physician on admission: Jeffrey Silva MD Consults: 12/25/16 16:56 Consult to Dietitian [CONS] Routine Reason for Dietitian: Diet Instruction 12/31/16 08:44 Consult to Physician [CONS] Routine Comment: Lung ca,increasing SOB, COPD, please assist Consulting Provider: Dimitrios John Consulting Provider Notified: Yes When should Consulting Provider be notified: Now Consult to Specialist Group: Pulmonology When should Consulting Provider be notified: Now Person Notified: CM Date Notified: 12/31/16 Time Notified: 08:56 01/02/17 10:00 Consult to Wound Care - [place] [CONS] Routine Reason for Wound Care: Wound Care Management Consult Comment: chest wound Discharging clinician: Jeffrey Silva MD
[2017-01-10 09:15] VITALS: BP 102/52
[2017-01-10] MEDS: DICLOFENAC 1.3% PATCH 5/PACK TRANSDERM SCH (10:01)
== END 2017-01-10 11:45 | disposition home or self-care (01) | DRG 861 ==
LOC: MERGE 12:17 → N.4E 12:31
PROVIDERS: ADMIT Specialist; ATTEND Specialist

== ENCOUNTER 2017-01-24 08:05 | Observation (INO) ==
[2017-01-24] MEDS ORDERED: ALBUTEROL/IPRATROPIUM 3 ML NEB RESP TX STA (08:37)
--- NOTE | 2017-01-24 08:55 | XRay Report ---
XR chest 1V portable Indication: Shortness of breath Comparison: 09 January 2017 Findings: The heart and mediastinum are normal in size and configuration. The pulmonary vascularity is normal in caliber. There is increasing patchy of bilateral pulmonary densities when compared to previous study. No other lung infiltrates, effusions, pneumothorax or other abnormality is demonstrated. Impression: Increasing bilateral pulmonary densities may indicate worsening infiltrates and/or underlying masses. PROCEDURE INTERPRETED AT [facility] DEPARTMENT OF RADIOLOGY Final Report Signed by: Dr. Torres Claros
--- NOTE | 2017-01-24 09:30 | EKG Report ---
Stationary ECG Study [facility] ER Test Date: 01/24/2017 9:28:29 AM Pat Name: SEAMUS VERAS Department: Room: Gender: M Weaver Dobby Loom: : 1965 Requested by: Nura Davila Order Number: [id number] Reading MD: LAYNE PARHAM Intervals [place] Rate: 106 P: 38 NM: 144 QRS: 0 QRSD: 93 T: 83 QT: 330 QTc: 392 Interpretive Statements SINUS TACHYCARDIA LEFT ATRIAL ABNORMALITY Electronically Signed On 01-25-17 18:26:33 CDT by LAYNE PARHAM [email or web address]
[2017-01-24 09:32] LABS: Basophils % 0.3 % (0.0-0.8); Eosinophils # 0.1 10*3/uL (0.0-0.87); Eosinophils % 0.6 % (0.00-10.9); Hematocrit 30.3 VOL% (42.0-52.0); Hemoglobin 9.5 GM/DL (14.0-18.0); Immature Granulocytes % 0.9 %; Immature Granulocytes Absolute 0.14 #; Lymphocytes % 6.5 % (21.2-54.2); Mean Corpuscular HGB Conc 31.4 GM/DL (32-36); Mean Corpuscular Hemoglobin 29 PG (27-34); Mean Corpuscular Volume 93.8 FL (87-102); Monocytes # 1.4 10*3/uL (0.11-0.8); Monocytes % 9.3 % (1.7-12.7); Neutrophils # 12.7 10*3/uL (1.4-7.4); Neutrophils % 82.4 % (38.7-73.9); Platelet Count 126 T/CUMM (130-400); Red Blood Count 3.23 MC/CUMM (3.8-5.5); Red Cell Distribution Width 18.8 % (9.3-17.3); White Blood Count 15.4 T/CUMM (4-12)
[2017-01-24] MEDS ORDERED: HYDROmorphone 2 MG/1 ML VIAL IV STA (09:57)
[2017-01-24] MEDS ORDERED: ONDANSETRON 4 MG/2 ML VIAL IV STA (09:57)
[2017-01-24] MEDS ORDERED: ONDANSETRON 4 MG/2 ML VIAL ONE (09:57)
[2017-01-24] MEDS ORDERED: HYDROmorphone 2 MG/1 ML VIAL ONE (09:58)
[2017-01-24 10:06] LABS: Alanine Aminotransferase 14 U/L (16-61); Albumin 1.5 G/DL (3.4-5.0); Alkaline Phosphatase 238 U/L (45-117); Aspartate Amino Transferase 27 U/L (0-37); Blood Urea Nitrogen 12 MG/DL (7-18); Calcium 7.2 MG/DL (8.5-10.1); Glucose 118 MG/DL (74-106); Osmolality,Calculated 270.1 MOS/KG (273-304); Potassium 4.7 MMOL/L (3.5-5.1); Sodium 135 MMOL/L (136-145); Total Protein 5.1 G/DL (6.4-8.3); Troponin I Only < 0.015 NG/ML (0.00-0.045)
[2017-01-24] MEDS ORDERED: BENZTROPINE 2 MG/2 ML AMP IV PRN (11:40)
[2017-01-24] MEDS ORDERED: MYLANTA/LIDO VISC 2:1 300 ML BOTTLE SWISH/SPIT PRN (11:40)
[2017-01-24] MEDS ORDERED: ALPRAZolam 0.25 MG TABLET PO PRN (11:40)
[2017-01-24] MEDS ORDERED: MAGNESIUM HYDROXIDE SUSP 30 ML UDCUP PO PRN (11:40)
[2017-01-24] MEDS ORDERED: LACTULOSE 20 GM/30 ML UDCUP PO PRN (11:40)
[2017-01-24] MEDS ORDERED: ONDANSETRON 4 MG/2 ML VIAL IV PRN (11:40)
[2017-01-24] MEDS ORDERED: LOPERAMIDE 2 MG CAPSULE PO PRN ×2 (11:40)
[2017-01-24] MEDS ORDERED: ALUMINUM/MAGNES/SIMETH MAX STR 30 ML UDCUP PO PRN (11:40)
[2017-01-24] MEDS ORDERED: ACETAMINOPHEN 325 MG TABLET PO PRN (11:40)
[2017-01-24] MEDS ORDERED: chlorproMAZINE 25 MG TABLET PO PRN (11:40)
[2017-01-24] MEDS ORDERED: chlorproMAZINE INJ 25 MG in SODIUM CHLORIDE 0.9% 100 ML IV PRN (11:40)
[2017-01-24] MEDS ORDERED: PROMETHAZINE INJ 25 MG in SODIUM CHLORIDE 0.9% 50 ML IV PRN (11:40)
[2017-01-24] MEDS ORDERED: guaiFENesin 200 MG/10 ML UDCUP PO PRN (11:40)
[2017-01-24] MEDS ORDERED: MYLANTA/LIDO VISC 2:1 300 ML BOTTLE SWISH/SWAL PRN (11:40)
[2017-01-24] MEDS ORDERED: chlorproMAZINE INJ 50 MG in SODIUM CHLORIDE 0.9% 100 ML IV PRN (11:40)
[2017-01-24] MEDS ORDERED: TEMAZEPAM 7.5 MG CAPSULE PO PRN (11:40)
[2017-01-24] MEDS ORDERED: diphenhydrAMINE CAP 25 MG CAPSULE PO PRN (11:40)
--- NOTE | 2017-01-24 11:40 | Emergency Department Note ---
Subhash Nieves Brittany, am scribing for, and in the presence of, Minh Farr MD 08:38. Yordan Nieves Doug C, MD, personally performed the services described in this documentation, ascribed by Gabriella Cullen in my presence, and it is both accurate and complete . Arrival - Arrival Chief Complaint: Shortness of Breath ED Nursing Triage Note: Patient states that he became short of breath yesterday. Wore O2 last night, but when he took it off he became more short of breath. Mode of Arrival: Stretcher Limitations: No Limitations Source: Patient, RN Notes Reviewed Time Seen by Provider: 01/24/17 08:31 - History of Present Illness HPI Narrative: Patient is a 51-year-old white male comes emergency room complaining of increasing shortness of breath. Patient has a history of stage IV squamous cell carcinoma of the lung with chest wall metastasis. He is receiving chemotherapy. He states has not had any fever, chills or increasing chest pain. States he is coughing but no more than his usual. He denies any hemoptysis or increasing wheeze. He is still smoking about a half a pack a day. Onset (ago): day(s) (1) Consistency: constant Allergies/Adverse Reactions: Allergies Allergy/AdvReac Type Severity Reaction Status Date / Time Penicillins Allergy Verified 12/04/16 09:25 Home Medications: Home Medications Medication Instructions Recorded Confirmed Type Amitriptyline [Elavil] 25 mg PO BEDTIME 12/04/16 12/25/16 History Folic Acid Tab 1 mg PO DAILY 12/04/16 12/25/16 History Ondansetron Tab [Zofran Tab] 4 mg PO Q6H PRN 12/04/16 12/25/16 History Furosemide Tab [Lasix Tab] 20 mg PO DAILY 12/25/16 12/25/16 History Indomethacin Cap [Indocin Cap] 25 mg PO TID 12/25/16 12/25/16 History tiZANidine [Zanaflex] 4 mg PO TID 12/25/16 12/25/16 History HYDROmorphone TAB [Dilaudid Tab] 4 mg PO Q4H #100 tablet 01/10/17 Rx Potassium Chloride Cap/Tab [K Dur] 20 meq PO DAILY #30 tablet 09/08/17 Rx fentaNYL 100 MCG/HR PATCH 2 patch TRANSDERM Q3DAY #20 patch 01/10/17 Rx [Duragesic 100 Patch] Review of System - Review of System 12 point system: reviewed and no additional remarkable complaints except as stated - Review of System Constitutional: Absent: chills, diaphoresis, fever Eyes: Absent: vision change Head/Ears/Nose/Throat: Absent: nasal drainage, sore throat Respiratory: Present: respiratory distress Cardiovascular: Absent: chest pain Gastrointestinal: Absent: abdominal pain, nausea, vomiting, diarrhea, constipation Genitourinary male: Absent: urgency, dysuria, frequency Musculoskeletal: Present: lower back pain. Absent: arm pain, leg pain, neck pain Skin: Absent: rash Neurological: Absent: headache Psychiatric: Absent: anxiety, depression Hematological/Lymphatic: Absent: easy bleeding, easy bruising Medical,Surgical,& Family Hx - Medical History Psychological: History of: Anxiety Disorders, Depression Respiratory: History of: COPD, Respiratory Problems (emphysema) Hematology: History of: Anemia Other: History of: Cancer (Stage IV Lung CA), Miscellaneous Medical Problems ( b12 deficiency) - Family History Family History: Reports;: Family Cancer (father,mother,sister), Family Diabetes (brother, mother) - Social History Smoking Status: Heavy tobacco smoker Frequency of Alcohol Use: None Type of Drug Use: None Exam Vital Signs: Vital Signs Temperature 97.8 F 01/24/17 08:07 Pulse Rate 107 H 01/24/17 10:13 Respiratory Rate 28 H 01/24/17 10:13 Blood Pressure 87/51 01/24/17 10:13 O2 Sat by Pulse Oximetry 93 L 01/24/17 10:13 - General General appearance: alert, cachectic - Head Head exam: Present: atraumatic, normocephalic - Eye Eye exam: Present: PERRL, EOMI - ENT ENT exam: Present: normal oropharynx, mucous membranes moist - Neck Neck exam: Present: normal inspection, full ROM, trachea midline - Chest Chest inspection: Present: symmetric chest wall rise. Absent: normal inspection (dressing noted to the medial aspect of the chest wall) - Respiratory Respiratory exam: Absent: normal lung sounds bilaterally (decreased breath sounds on to the right) - Cardiovascular Cardiovascular exam: Present: regular rate, normal rhythm, normal heart sounds. Absent: murmur, rubs, gallop - Abdominal Exam Abdominal exam: Present: soft, normal bowel sounds. Absent: distention, tenderness - Extremities Exam Extremities exam: Present: normal inspection - Back Exam Back exam: Present: normal inspection - Neurological Exam Neurological exam: Present: alert, oriented X3, CN II-XII intact. Absent: motor sensory deficit - Psychiatric Psychiatric exam: Present: normal affect, normal mood - Skin Skin exam: Present: warm, dry Course Course Narrative: Patient's clinical presentation, laboratory radiographic findings were discussed with Dr. Silva. He asked that patient be admitted to his services. Results - Labs CBC & BMP: 01/24/17 09:02 01/24/17 09:02 Lab Results: I have reviewed the patients labs Labs: Laboratory Tests 01/24/17 09:02 WBC 15.4 H RBC 3.23 L Hgb 9.5 L Hct 30.3 L MCHC 31.4 L RDW 18.8 H Plt Count 126 L Neut % (Auto) 82.4 H Lymph % (Auto) 6.5 L Neut # (Auto) 12.7 H Lymph # (Auto) 1.0 L [place] # (Auto) 1.4 H Laboratory Tests 01/24/17 09:02 Sodium 135 L Potassium 4.7 Chloride 98 Carbon Dioxide 32 BUN 12 Creatinine 0.50 L BUN/Creatinine Ratio 24.00 H Glucose 118 H Calculated Osmolality 270.1 L Calcium 7.2 L ALT 14 L Alkaline Phosphatase 238 H Troponin I < 0.015 Total Protein 5.1 L Albumin 1.5 L Globulin 3.6 H Albumin/Globulin Ratio 0.4 L - EKG EKG results: interpreted by ERMD EKG shows: tachycardia (Sinus tachycardia with rate 106 beats per) - Diagnostic Findings Procedure: Chest x-ray: report reviewed by me (Increasing bilateral pulmonary densities may indicate worsening infiltrates and/or underlying masses.) Disposition Clinical Impression: SCC (squamous cell carcinoma of lung), Respiratory failure Case discussed with: patient, patient's family Disposition: Still a Patient Condition: Guarded Time of Disposition: 11:40
--- NOTE | 2017-01-24 12:04 | Oncology History&Physical ---
History of Present Illness Chief complaint: Adenocarcinoma lung with progression of disease and pulmonary distress/pain History of present illness: Mr. Angulo is a 51 year old male with heavily treated adenocarcinoma the lung with multiple bony metastases as well as progression of disease in his lungs. He has previously been treated with Gemzar and carboplatin and also with Taxol and carboplatin and he has received radiation therapy. He was documented to have progression of disease last month and had multiple painful bony metastases as well as new findings in his lung [place] that included multiple lung masses. He received Alimta and carboplatin and I was surprised, but he had improvement in his bone pain and he had metastatic disease in multiple locations on his chest wall, including the manubrium and the left lower posterior chest that decreased in size. He actually was supposed to have an appointment to see me next week but he presented at this time with increasing weakness and dyspnea and worsening pain again. On reviewing the chest x-ray film on the patient today, he clearly has worsening parenchymal lung metastases. Some of the infiltrative changes in his lungs could represent pneumonia. He received Alimta 750 mg and carboplatin 120 mg given IV on December 30. He had extensive tumor involvement of the manubrium, left supraclavicular fossa and in the left posterior lower thorax. All these masses have significantly decreased in size. We are going to try to keep him outpatient and administer Keytruda 200 mg IV along with a repeat dose of the Alimta and carboplatin. Past medical history he is allergic to penicillin. Past medical history is positive for COPD, depression, anxiety, anemia and B12 deficiency. Family history: Positive for lung cancer in 2 brothers. Positive for diabetes mellitus in her brother, melanoma in his father, lung cancer in his mother and one sister. Social history: He is single. He smokes cigarettes heavily. He does not use alcohol. Review of systems: Constitutional: Positive for decreased activity, fatigue, lethargy, malaise and weight loss. ENT: Negative for cold sores, dysphagia, ear drainage, ear infections, epistaxis , excessive cerumen, nasal obstruction, lump in throat, mouth sores, otalgia, pharyngitis, rhinitis, rhinorrhea, snoring, sore tongue, tinnitus, tooth pain and vertigo. Eyes: Positive for decreased vision. Negative for burning eyes, diplopia, eye discharge, eye pain, eye redness, floaters, nystagmus, photophobia, scotomata and excessive tearing. Respiratory: Positive for accelerated respiration, cough, painful respiration and wheezing. Negative for cyanosis, dyspnea, hemoptysis, TB exposure, orthopnea, pleuritic pain, sputum production. GI: Positive for change in appetite, change in bowel habits, decreased appetite , diarrhea, heartburn, odynophagia and vomiting. Negative for abdominal mass, abdominal pain, bloating, blood in stool, hematemesis, melena or hematochezia, jaundice or constipation. : Positive for decreased stream and poor urgency. Negative for icteric urine , kidney stones, chronic or recurrent kidney infections or incontinence. Neuro: Positive for dizziness, headaches, lightheadedness and tremors. Negative for a aphasia, dysarthria, focal weakness, gait disturbance, incontinence, incoordination, loss of consciousness, seizures, convulsions or paralysis. Psychiatric: Positive for insomnia. Negative for difficulty concentrating, and appropriate interaction, or psychiatric illness. Skin: Negative for skin rash or skin ulcers. Musculoskeletal: Positive for back pain, bone and joint aches and pains, muscle weakness and neck stiffness. Negative for rheumatologic manifestations. Hematologic: Positive for cytopenias, at times severe. Negative for bleeding diathesis, easy bleeding, easy bruising, hypercoagulability, lymphadenopathy, petechiae or thromboembolic events. Physical examination: General: The patient is acutely and chronically ill, emaciated and cachectic. Eyes: Normal lids and conjunctivae. ENT: Poor dentition. His oral mucosa and pharynx are relatively normal. His hearing is normal. Neck: No masses. His trachea is midline. His thyroid is normal. Lungs: Extremely coarse breath sounds with scattered rhonchi throughout the lung [place]. Chest wall motion is symmetrical. There are at least 3 areas of metastatic disease to the chest that have all decreased in size, including the manubrium, the left lower posterior chest and the left supraclavicular fossa. Cardiovascular: His heart rhythm is regular without murmur, gallop or rub. There is no jugular venous distention, clubbing, cyanosis or edema. Abdomen: There are no abdominal masses, organomegaly, distention, tenderness or ascites. Musculoskeletal: He has generalized muscle wasting with deformity of the left clavicle but without other focal muscle atrophy or bone or joint deformity. Neurologic: Cranial nerves II through XII are intact. The no focal neurologic deficits. Nodes: There is no submandibular, anterior or posterior cervical or right supraclavicular adenopathy. There is still an area of matted nodes in the left supraclavicular fossa but these have decreased in size. The have deformed the left clavicle somewhat. Skin: I see no significant skin lesions or rashes. Psychiatric: He is oriented to time, place, person and situation. 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 Emaciation and cachexia COPD with hypoxemia Anemia, multifactorial including chronic disease mainly and partly due to chemotherapy and radiation thrombocytopenia: Hypokalemia: I am attempting to keep this patient outpatient so that I can treat him with Keytruda, Alimta and carboplatin. Home Medications Medication Instructions Recorded Confirmed Type Amitriptyline [Elavil] 25 mg PO BEDTIME 12/04/16 01/24/17 History Folic Acid Tab 1 mg PO QAM 12/04/16 01/24/17 History Ondansetron Tab [Zofran Tab] 4 mg PO Q6H PRN 12/04/16 01/24/17 History Furosemide Tab [Lasix Tab] 20 - 40 mg PO DAILY PRN 12/25/16 01/24/17 History tiZANidine [Zanaflex] 4 mg PO TID PRN 12/25/16 01/24/17 History HYDROmorphone TAB [Dilaudid Tab] 4 mg PO Q4H 01/24/17 01/24/17 History Potassium Chloride Cap/Tab [K Dur] 20 meq PO QAM 01/24/17 01/24/17 History fentaNYL 100 MCG/HR PATCH 2 patch TRANSDERM Q3DAY 01/24/17 01/24/17 History [Duragesic 100 Patch] Allergies Allergy/AdvReac Type Severity Reaction Status Date / Time Penicillins Allergy Intermediate Unknown/Unable Verified 01/24/17 13:16 to obtain Medical,Surgical,& Family Hx - Medical History Psychological: History of: Anxiety Disorders, Depression Respiratory: History of: COPD, Respiratory Problems (emphysema) Hematology: History of: Anemia Other: History of: Cancer (Stage IV Lung CA), Miscellaneous Medical Problems ( b12 deficiency) - Family History Family History: Reports;: Family Cancer (father,mother,sister), Family Diabetes (brother, mother) - Social History Smoking Status: Heavy tobacco smoker Frequency of Alcohol Use: None Type of Drug Use: None Exam - Constitutional Vitals: Period Temp Pulse Resp BP Sys/Kwok Pulse Ox Last 24 Hr 97.8 F-97.8 F 106-113 22-28 84-87/51-62 93-100 Results - Labs CBC & BMP: 01/25/17 03:32 01/25/17 03:32
[2017-01-24] MEDS ORDERED: PEMETREXED IV ONE (14:00)
[2017-01-24] MEDS ORDERED: GRANISETRON 1 MG/1 ML VIAL IV SCH (14:00)
[2017-01-24] MEDS ORDERED: FAMOTIDINE INJ 40 MG in SODIUM CHLORIDE 0.9% 100 ML IV SCH (14:00)
[2017-01-24] MEDS ORDERED: diphenhydrAMINE 50 MG/1 ML VIAL IV SCH (14:00)
[2017-01-24] MEDS ORDERED: PEMBROLIZUMAB 200 MG in SODIUM CHLORIDE 0.9% 50 ML IV ONE (14:00)
[2017-01-24] MEDS ORDERED: CYANOCOBALAMIN 1000 MCG/1 ML VIAL IM ONE (14:00)
[2017-01-24] MEDS ORDERED: SODIUM CHLORIDE 0.9% IV ONE ×2 (14:00)
[2017-01-24] MEDS ORDERED: CARBOPLATIN IV ONE (14:00)
[2017-01-24] MEDS ORDERED: FOLIC ACID 1 MG TABLET PO SCH (14:30)
[2017-01-24] MEDS: GRANISETRON 1 MG/1 ML VIAL IV SCH (14:41)
[2017-01-24] MEDS: HYDROmorphone 2 MG/1 ML VIAL IV PRN ×3 (14:47→22:12)
[2017-01-24] MEDS: MEROPENEM 1,000 MG in SODIUM CHLORIDE 0.9% 50 ML IV SCH ×2 (17:44→22:48)
[2017-01-24] MEDS: SODIUM CHLORIDE 0.9% 1,000 ML IV SCH (17:44)
[2017-01-24] MEDS ORDERED: ONDANSETRON 4 MG TABLET PO PRN (18:11)
[2017-01-24] MEDS ORDERED: FUROSEMIDE 20 MG TABLET PO PRN (18:11)
[2017-01-24] MEDS ORDERED: tiZANidine 4 MG TABLET PO PRN (18:11)
[2017-01-24] MEDS ORDERED: FUROSEMIDE 40 MG TABLET PO PRN (18:24)
[2017-01-24] MEDS ORDERED: HYDROmorphone 2 MG TABLET PO SCH (18:30)
[2017-01-24] MEDS: AMITRIPTYLINE 25 MG TABLET PO SCH (21:12)
[2017-01-25] MEDS: HYDROmorphone 2 MG/1 ML VIAL IV PRN ×3 (01:35→16:37)
[2017-01-25] MEDS: SODIUM CHLORIDE 0.9% 1,000 ML IV SCH (04:56)
[2017-01-25 04:59] LABS: Basophils % 0.2 % (0.0-0.8); Eosinophils # 0.2 10*3/uL (0.0-0.87); Eosinophils % 1.1 % (0.00-10.9); Hematocrit 27.1 VOL% (42.0-52.0); Hemoglobin 8.6 GM/DL (14.0-18.0); Immature Granulocytes % 0.9 %; Immature Granulocytes Absolute 0.16 #; Lymphocytes # 0.6 10*3/uL (1.4-4.0); Lymphocytes % 3.3 % (21.2-54.2); Mean Corpuscular HGB Conc 31.7 GM/DL (32-36); Mean Corpuscular Hemoglobin 30 PG (27-34); Mean Corpuscular Volume 93.4 FL (87-102); Mean Platelet Volume 11.8 FL (9.6-12.0); Monocytes # 1.2 10*3/uL (0.11-0.8); Monocytes % 6.8 % (1.7-12.7); Neutrophils # 14.8 10*3/uL (1.4-7.4); Neutrophils % 87.7 % (38.7-73.9); Platelet Count 104 T/CUMM (130-400); Red Cell Distribution Width 18.2 % (9.3-17.3); White Blood Count 16.9 T/CUMM (4-12)
[2017-01-25 05:32] LABS: Albumin 1.4 G/DL (3.4-5.0); Bilirubin,Total 0.8 MG/DL (0.2-1.0); Calcium 6.7 MG/DL (8.5-10.1); Osmolality,Calculated 269.2 MOS/KG (273-304); Potassium 4.1 MMOL/L (3.5-5.1); Total Protein 4.7 G/DL (6.4-8.3)
[2017-01-25 06:44] LABS: Band Neutrophils 2 % (0-10); Burr Cells Slight; Giant Platelets Few; Hypochromasia 1+; Lymphocytes 5 % (20-55); Ovalocytes Slight; Platelet Estimate Decreased; Segmented Neutrophils 87 % (50-85); Total Cells Counted 100
[2017-01-25 06:45] LABS: Microcytosis Slight
[2017-01-25] MEDS: MEROPENEM 1,000 MG in SODIUM CHLORIDE 0.9% 50 ML IV SCH ×2 (06:51→16:42)
[2017-01-25] MEDS: HYDROmorphone 2 MG TABLET PO PRN ×3 (07:58→21:17)
[2017-01-25] MEDS: POTASSIUM CHLORIDE 20 MEQ TABLET PO SCH (08:53)
[2017-01-25] MEDS: PANTOPRAZOLE 40 MG TABLET PO SCH (08:54)
[2017-01-25] MEDS: FOLIC ACID 1 MG TABLET PO SCH (08:54)
[2017-01-25] MEDS ORDERED: fentaNYL 100 MCG/HR PATCH TRANSDERM SCH (09:00)
--- NOTE | 2017-01-25 09:02 | Oncology Progress Note ---
Oncology Subjective PN Interval history: Mr. Angulo received chemotherapy yesterday using Alimta, carboplatin and Keytruda. He has had improvement in his chest pain and chest wall pain but he remains severely tachypneic. Lab work today includes: White cell count 16,900 Hemoglobin 8.6 Platelet count 104,000 I am continuing to keep him outpatient hoping to be able to discharge him in the morning. I am proceeding with blood transfusions today. On physical examination he is acutely and chronically ill. Eyes: Normal lids and conjunctivae. ENT: His trachea is midline. His hearing is normal. Lungs: He is tachypneic and has coarse breath sounds throughout both lung [place]. Cardiovascular: His heart rhythm is regular without murmur, gallop or rub. Neurologic: Cranial nerves II through XII are intact. I am proceeding with blood transfusions today in hopes of discharging him in the morning. Exam - Constitutional Vitals: Period Temp Pulse Resp BP Sys/Kwok Pulse Ox Last 24 Hr 96.7 F-99 F 106-126 15-28 84-130/50-62 87-100 Results - Labs CBC & BMP: 01/25/17 03:32 01/25/17 03:32
[2017-01-25] MEDS ORDERED: SODIUM CHLORIDE 0.9% 250 ML IV PRN (10:53)
[2017-01-25] MEDS: GRANISETRON 1 MG/1 ML VIAL IV SCH (16:35)
[2017-01-25] MEDS: AMITRIPTYLINE 25 MG TABLET PO SCH (21:17)
[2017-01-26] MEDS: MEROPENEM 1,000 MG in SODIUM CHLORIDE 0.9% 50 ML IV SCH ×3 (01:33→17:46)
[2017-01-26 05:39] LABS: Basophils # 0.1 10*3/uL (0.0-0.2); Basophils % 0.3 % (0.0-0.8); Eosinophils % 0.1 % (0.00-10.9); Hematocrit 37.3 VOL% (42.0-52.0); Hemoglobin 11.9 GM/DL (14.0-18.0); Immature Granulocytes % 0.9 %; Immature Granulocytes Absolute 0.17 #; Lymphocytes # 0.5 10*3/uL (1.4-4.0); Lymphocytes % 2.8 % (21.2-54.2); Mean Corpuscular HGB Conc 31.9 GM/DL (32-36); Mean Corpuscular Hemoglobin 30 PG (27-34); Mean Corpuscular Volume 93.7 FL (87-102); Mean Platelet Volume 12.2 FL (9.6-12.0); Monocytes # 0.3 10*3/uL (0.11-0.8); Monocytes % 1.8 % (1.7-12.7); Neutrophils % 94.1 % (38.7-73.9); Platelet Count 70 T/CUMM (130-400); Red Blood Count 3.98 MC/CUMM (3.8-5.5); Red Cell Distribution Width 17.8 % (9.3-17.3); White Blood Count 18.1 T/CUMM (4-12)
[2017-01-26 06:11] LABS: Albumin 1.5 G/DL (3.4-5.0); Calcium 7.2 MG/DL (8.5-10.1); Osmolality,Calculated 273.8 MOS/KG (273-304); Potassium 4.4 MMOL/L (3.5-5.1); Total Protein 5.1 G/DL (6.4-8.3)
[2017-01-26 06:34] LABS: Band Neutrophils 3 % (0-10); Eosinophils 1 % (0-10); Giant Platelets Few; Hypochromasia 1+; Lymphocytes 1 % (20-55); Platelet Estimate Decreased; Segmented Neutrophils 94 % (50-85); Total Cells Counted 100
[2017-01-26 06:35] LABS: Microcytosis Slight
[2017-01-26] MEDS: SODIUM CHLORIDE 0.9% 1,000 ML IV SCH ×5 (07:01→19:59)
--- NOTE | 2017-01-26 09:19 | Oncology Progress Note ---
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 Angulo today after administration of chemotherapy yesterday. He was oriented and alert and we are going to set up home oxygen. However, early this morning he lapsed into a coma. He remains in a coma with agonal respirations and simply cannot be discharged. I do not think she will survive the day. Stage IV squamous cell carcinoma of the lung with multiple bone metastases and rapid progression of disease pneumonia interspersed with multiple metastatic lesions. Emaciation and cachexia He is malnourished, emaciated and cachectic with a serum albumin of 1.5. COPD with hypoxemia Anemia, multifactorial including chronic disease mainly and partly due to chemotherapy and radiation He has a hemoglobin today of 11.9 after transfusion. Thrombocytopenia: the patient has a platelet count that has dropped to 70,000. Hypokalemia: Serum potassium today 4.4. Exam - Constitutional Vitals: Period Temp Pulse Resp BP Sys/Kwok Pulse Ox Last 24 Hr 97.3 F-99.6 F 118-131 12- 94-120/55-84 90-95 Results - Labs CBC & BMP: 01/26/17 04:47 01/26/17 04:47
[2017-01-26] MEDS: POTASSIUM CHLORIDE 20 MEQ TABLET PO SCH (10:59)
[2017-01-26] MEDS: PANTOPRAZOLE 40 MG TABLET PO SCH (10:59)
[2017-01-26] MEDS: FOLIC ACID 1 MG TABLET PO SCH (10:59)
--- NOTE | 2017-01-26 11:22 | Oncology Progress Note ---
Oncology Subjective PN Interval history: Mr. tinooc has deteriorated markedly overnight. I had been planning to discharge him home today but he has had an abrupt deterioration in neurologic status and is unresponsive with agonal respirations today. There is no way I can discharge him because I do not think he will survive more than a few hours at this point. Exam - Constitutional Vitals: Period Temp Pulse Resp BP Sys/Kwok Pulse Ox Last 24 Hr 97.3 F-99.6 F 118-131 12-22 94-120/55-84 90-95 Results - Labs CBC & BMP: 01/26/17 04:47 01/26/17 04:47
[2017-01-26] MEDS: HYDROmorphone 2 MG/1 ML VIAL IV PRN ×2 (14:38→19:52)
[2017-01-26] MEDS ORDERED: GRANISETRON 1 MG/1 ML VIAL IV SCH (17:00)
[2017-01-26] MEDS: GRANISETRON 1 MG/1 ML VIAL IV SCH (17:04)
[2017-01-26] MEDS: AMITRIPTYLINE 25 MG TABLET PO SCH (23:54)
[2017-01-27] MEDS: MEROPENEM 1,000 MG in SODIUM CHLORIDE 0.9% 50 ML IV SCH (02:28)
[2017-01-27] MEDS: SODIUM CHLORIDE 0.9% 1,000 ML IV SCH ×2 (02:39→07:44)
[2017-01-27] MEDS: HYDROmorphone 2 MG/1 ML VIAL IV PRN (02:40)
[2017-01-27 07:36] LABS: Albumin 1.5 G/DL (3.4-5.0); Bilirubin,Total 1.4 MG/DL (0.2-1.0); Osmolality,Calculated 274.1 MOS/KG (273-304); Potassium 5.2 MMOL/L (3.5-5.1); Total Protein 5.1 G/DL (6.4-8.3)
--- NOTE | 2017-01-27 08:15 | Oncology Progress Note ---
Oncology Subjective PN Interval history: Mr. Angulo has advanced squamous cell carcinoma of the lung. He received chemotherapy as an outpatient earlier this week and I had intended to send him home but yesterday he had an abrupt deterioration in neurologic status and became comatose. His hemoglobin also dropped and he was transfused. His hemoglobin today is 11.9. His white cell count is satisfactory at 18,100. His platelet count is 70,000 today. He is emaciated and cachectic with a serum albumin of 1.5.. His potassium is 5.2 today, which is slightly high. He has had pain medicine this morning and cannot be awakened. He evidently talked all night however. His family is still present to take him home but I explained to them that we should at least give this chemotherapy a chance. I had anticipated discharging him after the chemotherapy, which he received as an outpatient this weekend, but he had an abrupt change in his neurologic status, lapsing into a coma. On physical examination he is currently unresponsive. He is emaciated, cachectic and malnourished. Eyes: Normal lids and conjunctivae. Musculoskeletal: Generalized muscle wasting. Pulmonary: Coarse rhonchi throughout both lung [place]. His chest moves symmetrically with respiration. 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 Cardiovascular: His heart rhythm is regular without murmur, gallop or rub. There is no jugular venous distention, clubbing or cyanosis. Abdomen: No masses, ascites or distention. Neurologic: No obvious focal neurologic deficits but he is unresponsive presently. Exam - Constitutional Vitals: Period Temp Pulse Resp BP Sys/Kwok Pulse Ox Last 24 Hr 96.7 F-97.8 F 107-124 14-22 83-108/45-59 85-94 Results - Labs CBC & BMP: 01/26/17 04:47 01/27/17 06:04
[2017-01-27] MEDS: FOLIC ACID 1 MG TABLET PO SCH (08:21)
[2017-01-27] MEDS: POTASSIUM CHLORIDE 20 MEQ TABLET PO SCH (08:21)
[2017-01-27] MEDS: PANTOPRAZOLE 40 MG TABLET PO SCH (08:21)
[2017-01-27 10:20] LABS: Basophils % 0.1 % (0.0-0.8); Eosinophils % 0.1 % (0.00-10.9); Hematocrit 38.7 VOL% (42.0-52.0); Immature Granulocytes % 0.4 %; Immature Granulocytes Absolute 0.06 #; Lymphocytes # 0.4 10*3/uL (1.4-4.0); Lymphocytes % 2.6 % (21.2-54.2); Mean Corpuscular Hemoglobin 30 PG (27-34); Mean Corpuscular Volume 97.7 FL (87-102); Mean Platelet Volume 12.7 FL (9.6-12.0); Monocytes # 0.1 10*3/uL (0.11-0.8); Monocytes % 0.5 % (1.7-12.7); Neutrophils # 14.3 10*3/uL (1.4-7.4); Neutrophils % 96.3 % (38.7-73.9); Red Blood Count 3.96 MC/CUMM (3.8-5.5); Red Cell Distribution Width 17.4 % (9.3-17.3); White Blood Count 14.8 T/CUMM (4-12)
[2017-01-27 10:23] LABS: Platelet Count 49 T/CUMM (130-400)
[2017-01-27 10:45] LABS: Band Neutrophils 2 % (0-10); Lymphocytes 2 % (20-55); Platelet Estimate Decreased; Segmented Neutrophils 95 % (50-85); Total Cells Counted 100
[2017-01-27 10:46] LABS: Burr Cells Slight; Hypochromasia 1+; Microcytosis 1+
[2017-01-28 05:13] VITALS: BP 54/29
--- NOTE | 2017-01-28 07:35 | Oncology Progress Note ---
Oncology Subjective PN Interval history: Diagnoses: Stage IV squamous cell carcinoma of the lung (cause of ): Severe intractable pain requiring parenteral narcotics: Emaciation and cachexia and malnutrition: COPD: Anemia: Thrombocytopenia: Mr. Angulo was admitted with severe intractable pain and increasing dyspnea. He had obvious progression of his cancer on reviewing his chest x-ray. This surprised me, because he had metastatic disease to the lower left back as well as to the manubrium and supraclavicular region, all of which shrank with Alimta and carboplatin. In fact, he was initially an outpatient since I proceeded with chemotherapy using Keytruda 200 mg along with Alimta 750 mg IV and carboplatin 120 mg IV in the hopes that he would respond. I even anticipated sending him home after chemotherapy and transfusions. Unfortunately, on the day that I had planned to discharge him, his sensorium diminished and he ultimately primarily due to the metastatic squamous cell lung cancer and its complications. Exam - Constitutional Vitals: Period Temp Pulse Resp BP Sys/Kwok Pulse Ox Last 24 Hr 95.8 F-97.9 F 90-107 8-16 54-90/29-54 87-93 Results - Labs CBC & BMP: 01/27/17 10:06 01/27/17 06:04
--- NOTE | 2017-01-28 08:15 | Discharge Summary ---
Hospital Course - Hospital Course Hospital Course: Diagnoses: Stage IV squamous cell carcinoma of the lung (cause of ): Severe intractable pain requiring parenteral narcotics: Emaciation and cachexia and malnutrition: COPD: Anemia: Thrombocytopenia: Mr. Angulo was admitted with severe intractable pain and increasing dyspnea. He had obvious progression of his cancer on reviewing his chest x-ray. This surprised me, because he had metastatic disease to the lower left back as well as to the manubrium and supraclavicular region, all of which shrank with Alimta and carboplatin. In fact, he was initially an outpatient since I proceeded with chemotherapy using Keytruda 200 mg along with Alimta 750 mg IV and carboplatin 120 mg IV in the hopes that he would respond. I even anticipated sending him home after chemotherapy and transfusions. Unfortunately, on the day that I had planned to discharge him, his sensorium diminished and he ultimately primarily due to the metastatic squamous cell lung cancer and its complications. Discharge Plan - Discharge Data Disposition: - Discharge Medications No Action Folic Acid Tab 1 mg PO QAM Amitriptyline [Elavil] 25 mg PO BEDTIME tiZANidine [Zanaflex] 4 mg PO TID PRN PRN Reason: MUSCLE SPASMS fentaNYL 100 MCG/HR PATCH [Duragesic 100 Patch] 2 patch TRANSDERM Q3DAY HYDROmorphone TAB [Dilaudid Tab] 4 mg PO Q4H Ondansetron Tab [Zofran Tab] 4 mg PO Q6H PRN PRN Reason: Nausea Furosemide Tab [Lasix Tab] 20 - 40 mg PO DAILY PRN PRN Reason: edema Potassium Chloride Cap/Tab [K Dur] 20 meq PO QAM - Follow Up or Referral - Forms/Instructions Exam - Constitutional Vitals: Period Temp Pulse Resp BP Sys/Kwok Pulse Ox Last 24 Hr 95.8 F-97.9 F 90-101 8-16 54-73/29-47 87-93 Discharge Results Procedures and tests throughout hospitalization: Pending Orders 01/24/17 09:02 Blood Culture Stat 01/26/17 19:40 Urine Culture Routine 01/29/17 04:00 Comp Blood Count Auto Diff IN AM Comprehensive Metabolic Panel IN AM LDH [Lactate Dehydrogenase] IN AM 01/30/17 04:00 Comp Blood Count Auto Diff IN AM Comprehensive Metabolic Panel IN AM Labs on day of discharge: Labs from last 24 hours 01/27/17 10:06 WBC 14.8 H RBC 3.96 Hgb 12.0 L Hct 38.7 L MCV 97.7 MCH 30 MCHC 31.0 L RDW 17.4 H Plt Count 49 L D MPV 12.7 H Neut % (Auto) 96.3 H Lymph % (Auto) 2.6 L Moody % (Auto) 0.5 L Eos % (Auto) 0.1 Baso % (Auto) 0.1 Neut # (Auto) 14.3 H Lymph # (Auto) 0.4 L Moody # (Auto) 0.1 L Eos # (Auto) 0.0 Baso # (Auto) 0.0 Total Counted 100 Immature Gran % 0.4 Nucleated RBC % 0.0 Immature Gran # 0.06 Segmented Neutrophils 95 H Band Neutrophils 2 Lymphocytes 2 L Monocytes 1 L Nucleated RBCs # 0.00 Platelet Estimate Decreased Immature Plt Fraction 14.7 H Hypochromasia 1+ Microcytosis 1+ Jeancarlos Cells Slight Preliminary micro results at discharge 01/24/17 09:02 Blood Culture - Preliminary Blood No growth at 3 days 01/24/17 09:02 Blood Culture - Preliminary Blood No growth at 3 days 01/26/17 19:40 Urine Culture - Preliminary Urine,Catheterized No Growth at 12 hours. DS: Provider Date of admission: 01/24/17 11:40 Primary care physician: Kelvin Whaley Attending physician on admission: Jeffrey Silva MD Consults: 01/24/17 14:57 Consult to Dietitian [CONS] Routine Reason for Dietitian: Diet Instruction Discharging clinician: Jeffrey Silva MD
== END 2017-01-28 06:56 | disposition expired ==
LOC: N.4E 08:05 → N.EDINP 08:05 → N.ED 08:05 → N.4EOUT 12:42 → N.4E 12:42
PROVIDERS: ADMIT Specialist; ATTEND Specialist